=== PATIENT | female | born 1950 | race Caucasian/White ===

== ENCOUNTER 2019-04-18 17:54 | Emergency (ER) | payer OTHER ==
[2019-04-18] MEDS ORDERED: ONDANSETRON 4 MG/2 ML VIAL ONE (19:05)
[2019-04-18] MEDS ORDERED: MORPHINE 4 MG/ML SYR ONE (19:05)
[2019-04-18] MEDS ORDERED: LIDOCAINE 1% MPF 5 ML VIAL ONE ×2 (19:54→19:56)
--- NOTE | 2019-04-18 19:57 | RAD REPORT ---
EXAM DESCRIPTION: RAD - Foot Right 3 View - 04/18/2019 7:30 pm CLINICAL HISTORY: Trip and fall, right foot pain, pain primarily right third toe COMPARISON: None. FINDINGS: No acute fracture confirmed on this study. Postsurgical changes are present with bone scre w in place fusing the first MTP joint. There is upper true of the along the lateral margin of the fir st metatarsal head and first toe proximal phalanx. Full surgical history for the patient is unknown. There is deformity of the second- fifth metatarsal heads in deformity of the base of each in the seco nd- proximal phalanges. This could be a combination of surgical change in degenerative change. There is joint space narrowing at the third MTP joint with marginal spurring. No erosive or destructive wendy nges seen. IP joint degenerative changes are present. The DIP joint of the third toe is not well visualized. Dis location of the third distal phalanx at the DIP joint cannot be excluded. Lateral imaging of this alesha nt is limited. No air or foreign body in the soft tissues. IMPRESSION: No fracture changes confirmed on this study. Dislocation of the third distal phalanx to the DIP joints not be excluded. Degenerative change and/or post surgical change involves the second- fifth MTP joints. Prominent dege nerative changes seen at the third MTP joint. Fusion of the first MTP joint. There is spurring or bony hypertrophy at the lateral margin of the alesha nt but no acute finding.
[2019-04-18] MEDS ORDERED: DIAZEPAM 10 MG/2 ML INJ SYRINGE ONE (20:42)
--- NOTE | 2019-04-18 21:25 | ER ---
Nurse's Notes [facility] Name: Yodit Gross Age: 68 yrs Sex: Female : 1950 Arrival Date: 04/18/2019 Time: 17:57 Bed 26 Private MD: Diagnosis: Dislocation of interphalangeal joint of left lesser toe(s);Laceration with foreign body of left lesser toe(s) without damage to nail Presentation: 04/18 18:25 Presenting complaint: Patient states: "I tripped getting out of my house and hurt my aj1 foot." States that her right 3rd toe is bent backward and there is a laceration to that toe. Drsg to right foot is dry and intact. Transition of care: patient was not received from another setting of care. Onset of symptoms was April 18, 2019 at 17:30. Risk Assessment: Do you want to hurt yourself or someone else? Patient reports no desire to harm self or others. Initial Sepsis Screen: Does the patient meet any 2 criteria? No. Patient's initial sepsis screen is negative. Does the patient have a suspected source of infection? No. Patient's initial sepsis screen is negative. Care prior to arrival: None. 18:25 Method Of Arrival: Wheelchair aj1 18:25 Acuity: MERRITT 4 aj1 Triage Assessment: 18:27 General: Appears in no apparent distress. uncomfortable, Behavior is calm, cooperative, aj1 appropriate for age. Pain: Complains of pain in right foot. Neuro: Level of Consciousness is awake, alert, obeys commands. Cardiovascular: Patient's skin is warm and dry. Respiratory: Airway is patent Respiratory effort is even, unlabored, Respiratory pattern is regular, symmetrical. Historical: - Allergies: 18:27 Codeine; aj1 - Home Meds: 18:27 Lipitor Oral [Active]; humarra [Active]; methatrexate [Active]; aj1 - PMHx: 18:27 Hyperlipidemia; RA; aj1 - Immunization history:: Flu vaccine is up to date. - Social history:: Smoking status: Patient/guardian denies using tobacco. - Ebola Screening: : Patient denies travel to an Ebola-affected area in the 21 days before illness onset. Screenin:11 Abuse screen: Denies threats or abuse. Nutritional screening: No deficits noted. tr5 Tuberculosis screening: No symptoms or risk factors identified. Fall Risk None identified. Assessment: 18:45 Pain: Complains of pain in right foot Pain does not radiate. Pain currently is 6 out of tr5 10 on a pain scale. Quality of pain is described as aching, Pain began gradually. Neuro: Level of Consciousness is awake, alert, confused, Oriented to person, place, time, Site Leasing Agent are equal bilaterally Moves all extremities. Cardiovascular: Heart tones present Capillary refill < 3 seconds Pulses are all present. Edema is absent. Respiratory: Airway is patent Respiratory effort is even, unlabored, Respiratory pattern is regular, symmetrical. GI: No signs and/or symptoms were reported involving the gastrointestinal system. : No signs and/or symptoms were reported regarding the genitourinary system. EENT: No signs and/or symptoms were reported regarding the EENT system. Derm: Skin is intact, Skin is dry. Musculoskeletal: Capillary refill < 3 seconds. 18:45 General: Appears uncomfortable, Behavior is calm, cooperative, appropriate for age. tr5 20:00 Reassessment: Patient appears in no apparent distress at this time. Patient and/or tr5 family updated on plan of care and expected duration. Pain level reassessed. Patient is alert, oriented x 3, equal unlabored respirations, skin warm/dry/pink. 21:23 Reassessment: Patient appears in no apparent distress at this time. No changes from tr5 previously documented assessment. Patient is alert, oriented x 3, equal unlabored respirations, skin warm/dry/pink. Vital Signs: 18:27 BP 140 / 78; Pulse 83; Resp 19; Temp 98.0; Pulse Ox 98% on R/A; Weight 71.21 kg (R); aj1 Height 5 ft. 5 in. (165.10 cm) (R); Pain 8/10; 21:00 BP 134 / 81; Pulse 66; Resp 17; Pulse Ox 100% on R/A; tr5 18:27 Body Mass Index 26.13 (71.21 kg, 165.10 cm) 1 ED Course: 17:57 Patient arrived in ED. as 18:27 Triage completed. aj1 18:27 Arm band placed on Patient placed in an exam room. aj1 18:30 Joseph James, RN is Primary Nurse. tr5 18:35 Marilyn Frazier FNP is [facility]. nh 18:35 Parmjit Weeks MD is Attending Physician. nh 18:57 Inserted saline lock: 22 gauge in right antecubital area, using aseptic technique. ca1 Blood collected. 19:11 Patient has correct armband on for positive identification. Bed in low position. Call tr5 light in reach. 19:29 X-ray completed. Portable x-ray completed in exam room. Patient tolerated procedure mh1 well. 19:31 XRAY Foot RIGHT 3 View In Process Unspecified. EDMS 21:11 X-ray completed. Portable x-ray completed in exam room. Patient tolerated procedure mh1 well. 21:12 XRAY Foot RIGHT 3 View In Process Unspecified. EDMS 21:24 Harley Dempsey DPM is Referral Physician. nh 22:07 Ortho shoe applied to right foot. lt1 Administered Medications: 19:05 Drug: Zofran 4 mg Route: IVP; Site: right antecubital; ca1 19:56 Follow up: Response: No adverse reaction ca1 19:09 Drug: morphine 4 mg {Note: RASS - 0.} Route: IVP; Site: right antecubital; ca1 19:56 Follow up: Response: No adverse reaction; Pain is decreased; RASS: Alert and Calm (0) ca1 20:44 Drug: Valium 5 mg Route: IVP; Site: right antecubital; ca1 21:30 Follow up: Response: Marked relief of symptoms tr5 21:14 Drug: Lidocaine (1 %) 1 mg/kg Volume: 20 ml; Route: Infiltration; tr5 21:14 Drug: Bupivacaine (0.25 %) 1 mg/kg Route: Infiltration; tr5 21:43 Drug: Ancef 1 grams Route: IM; Site: left deltoid; tr5 22:15 Follow up: Response: Medication administered at discharge. tr5 Outcome: 21:25 Discharge ordered by . nh 22:18 Patient left the ED. tr5 Signatures: Dispatcher [employer] EDMS Daria Rogers RN RN aj1 Marilyn Frazier FNP MACHINE DESIGN ENGINEER ny Hue Cabezas 1 Isaura Griffiths Cheryl, RN RN ca1 Landeros, Brooke lt1 Joseph James RN RN tr5 Corrections: (The following items were deleted from the chart) 19:11 19:09 General: Appears uncomfortable, Behavior is calm, cooperative, appropriate for tr5 age, tr5
--- NOTE | 2019-04-18 21:26 | EDPHYS ---
Physician Documentation [facility] Name: Yodit Gross Age: 68 yrs Sex: Female : 1950 Arrival Date: 04/18/2019 Time: 17:57 Bed 26 Private MD: ED Physician Parmjit Weeks HPI: 04/18 21:20 This 68 yrs old Female presents to ER via Wheelchair with complaints of Toe nh Injury. 21:20 Onset: The symptoms/episode began/occurred acutely, just prior to arrival. The patient nh has not experienced similar symptoms in the past. The patient has not recently seen a physician. Patient tripped over dog injuring foot. Hx of RA with deformities in effected foot. Historical: - Allergies: 18:27 Codeine; aj1 - Home Meds: 18:27 Lipitor Oral [Active]; humarra [Active]; methatrexate [Active]; aj1 - PMHx: 18:27 Hyperlipidemia; RA; aj1 - Immunization history:: Flu vaccine is up to date. - Social history:: Smoking status: Patient/guardian denies using tobacco. - Ebola Screening: : Patient denies travel to an Ebola-affected area in the 21 days before illness onset. ROS: 21:20 Constitutional: Negative for fever, chills, and weight loss, Eyes: Negative for injury, nh pain, redness, and discharge, ENT: Negative for injury, pain, and discharge, Neck: Negative for injury, pain, and swelling, Cardiovascular: Negative for chest pain, palpitations, and edema, Respiratory: Negative for shortness of breath, cough, wheezing, and pleuritic chest pain, Abdomen/GI: Negative for abdominal pain, nausea, vomiting, diarrhea, and constipation, Back: Negative for injury and pain, : Negative for injury, bleeding, discharge, and swelling, Skin: Negative for injury, rash, and discoloration, Neuro: Negative for headache, weakness, numbness, tingling, and seizure, Psych: Negative for depression, anxiety, suicide ideation, homicidal ideation, and hallucinations, Allergy/Immunology: Negative for hives, rash, and allergies, Endocrine: Negative for neck swelling, polydipsia, polyuria, polyphagia, and marked weight changes, Hematologic/Lymphatic: Negative for swollen nodes, abnormal bleeding, and unusual bruising. 21:20 MS/extremity: Positive for injury or acute deformity, laceration, of the plantar aspect of right third toe. Exam: 21:20 Constitutional: This is a well developed, well nourished patient who is awake, alert, nh and in no acute distress. Head/Face: Normocephalic, atraumatic. Eyes: Pupils equal round and reactive to light, extra-ocular motions intact. Lids and lashes normal. Conjunctiva and sclera are non-icteric and not injected. Cornea within normal limits. Periorbital areas with no swelling, redness, or edema. ENT: Nares patent. No nasal discharge, no septal abnormalities noted. Tympanic membranes are normal and external auditory canals are clear. Oropharynx with no redness, swelling, or masses, exudates, or evidence of obstruction, uvula midline. Mucous membranes moist. Neck: Trachea midline, no thyromegaly or masses palpated, and no cervical lymphadenopathy. Supple, full range of motion without nuchal rigidity, or vertebral point tenderness. No Meningismus. Chest/axilla: Normal chest wall appearance and motion. Nontender with no deformity. No lesions are appreciated. Cardiovascular: Regular rate and rhythm with a normal S1 and S2. No gallops, murmurs, or rubs. Normal PMI, no JVD. No pulse deficits. Respiratory: Lungs have equal breath sounds bilaterally, clear to auscultation and percussion. No rales, rhonchi or wheezes noted. No increased work of breathing, no retractions or nasal flaring. Abdomen/GI: Soft, non-tender, with normal bowel sounds. No distension or tympany. No guarding or rebound. No evidence of tenderness throughout. Back: No spinal tenderness. No costovertebral tenderness. Full range of motion. Skin: Warm, dry with normal turgor. Normal color with no rashes, no lesions, and no evidence of cellulitis. Neuro: Awake and alert, GCS 15, oriented to person, place, time, and situation. Cranial nerves II-XII grossly intact. Motor strength 5/5 in all extremities. Sensory grossly intact. Cerebellar exam normal. Normal gait. 21:20 Musculoskeletal/extremity: Extremities: noted in the plantar aspect of right third toe: deformity, laceration, pain, ROM: limited active range of motion due to pain, in the plantar aspect of right third toe, Circulation is intact in all extremities. Sensation intact. Vital Signs: 18:27 BP 140 / 78; Pulse 83; Resp 19; Temp 98.0; Pulse Ox 98% on R/A; Weight 71.21 kg (R); aj1 Height 5 ft. 5 in. (165.10 cm) (R); Pain 8/10; 21:00 BP 134 / 81; Pulse 66; Resp 17; Pulse Ox 100% on R/A; tr5 18:27 Body Mass Index 26.13 (71.21 kg, 165.10 cm) aj1 Procedures: 21:20 Reduction: of the plantar aspect of right third toe, using traction, Patient tolerated me well. Post reduction film - reveals normal alignment. Laceration: 21:20 Wound Repair of 2cm ( 0.8in ) subcutaneous laceration to plantar aspect of right third nh toe. Distal neuro/vascular/tendon intact. Anesthesia: Digital block administered with 1 mls of Lido/Marcaine. Wound prep: Moderate cleansing with betadine by me. Skin closed with 4 5-0 Prolene using simple sutures and sterile technique. Patient tolerated well. MDM: 18:35 Patient medically screened. me 21:20 Data reviewed: vital signs, nurses notes, radiologic studies, I have discussed the me patient's presentation/case with the attending Emergency Department Physician; and as a result, I will discharge patient. Counseling: I had a detailed discussion with the patient and/or guardian regarding: the historical points, exam findings, and any diagnostic results supporting the discharge/admit diagnosis, radiology results, the need for outpatient follow up, to return to the emergency department if symptoms worsen or persist or if there are any questions or concerns that arise at home. 04/18 19:08 Order name: XRAY Foot RIGHT 3 View; Complete Time: 20:19 me 04/18 20:55 Order name: XRAY Foot RIGHT 3 View me 04/18 19:08 Order name: IV Saline Lock; Complete Time: : ca1 Administered Medications: 19:05 Drug: Zofran 4 mg Route: IVP; Site: right antecubital; ca1 19:56 Follow up: Response: No adverse reaction ca1 19:09 Drug: morphine 4 mg {Note: RASS - 0.} Route: IVP; Site: right antecubital; ca1 19:56 Follow up: Response: No adverse reaction; Pain is decreased; RASS: Alert and Calm (0) ca1 20:44 Drug: Valium 5 mg Route: IVP; Site: right antecubital; ca1 21:30 Follow up: Response: Marked relief of symptoms tr5 21:14 Drug: Lidocaine (1 %) 1 mg/kg Volume: 20 ml; Route: Infiltration; tr5 21:14 Drug: Bupivacaine (0.25 %) 1 mg/kg Route: Infiltration; tr5 21:43 Drug: Ancef 1 grams Route: IM; Site: left deltoid; tr5 22:15 Follow up: Response: Medication administered at discharge. tr5 Disposition: 04/19 07:40 Co-signature as Attending Physician, Parmjit Weeks MD. rn Disposition: 04/18/19 21:25 Discharged to Home. Impression: Dislocation of interphalangeal joint of left lesser toe(s), Laceration with foreign body of left lesser toe(s) without damage to nail. - Condition is Stable. - Discharge Instructions: Sutured Wound Care, Toe Dislocation. - Prescriptions for Doxycycline Hyclate 100 mg Oral Tablet - take 1 tablet by ORAL route every 12 hours; 20 tablet. Tramadol 50 mg Oral Tablet - take 1 tablet by ORAL route every 8 hours as needed; 20 tablet. Bactrim DS 800- 160 mg Oral Tablet - take 1 tablet by ORAL route every 12 hours for 10 days; 20 tablet. - Medication Reconciliation Form, Thank You Letter, Antibiotic Education, Prescription Opioid Use form. - Follow up: Harley Dempsey DPM; When: 2 - 3 days; Reason: Recheck today's complaints. - Problem is new. - Symptoms are unchanged. Signatures: Dispatcher [employer] EDMS Daria Rogers RN RN aj1 Marilyn Frazier, INSURANCE SALES ASSOCIATE INSURANCE SALES ASSOCIATE Parmjit Crump MD MD rn Acob, Cheryl, RN RN ca1 Joseph James RN RN tr5 Corrections: (The following items were deleted from the chart) 04/18 22:18 21:25 04/18/2019 21:25 Discharged to Home. Impression: Dislocation of interphalangeal tr5 joint of left lesser toe(s); Laceration with foreign body of left lesser toe(s) without damage to nail. Condition is Stable. Forms are Medication Reconciliation Form, Thank You Letter, Antibiotic Education, Prescription Opioid Use. Follow up: Harley Dempsey; When: 2 - 3 days; Reason: Recheck today's complaints. Problem is new. Symptoms are unchanged. nh
[2019-04-18] MEDS ORDERED: CEFAZOLIN/SWI 1gm 1 GM/10 ML SYR ONE (21:38)
[2019-04-19 05:43] VITALS: TEMP 98
[2019-04-19 05:44] VITALS: BP 134/81; O2SAT 100
--- NOTE | 2019-04-19 12:36 | RAD REPORT ---
EXAM DESCRIPTION: RAD - Foot Right 3 View - 04/18/2019 9:15 pm CLINICAL HISTORY: PAIN COMPARISON: Foot Right 3 View dated 04/18/2019 FINDINGS: Postsurgical changes of first MTP joint fusion noted. Metatarsal head deformity is present involving the second through fifth. No definitive fracture or dislocation seen. Subluxation of the p roximal phalanx of second toe with respect to the second metatarsal head is seen, but has a chronic a ppearance.
== END 2019-04-18 22:18 | disposition home or self-care (01) ==
LOC: ER 17:54
PROC: 0JQQ0ZZ Repair Right Foot Subcutaneous Tissue and Fascia, Open Approach (ICD-10-PCS; principal; 2019-04-18)
PROC: 0SSQXZZ Reposition Left Toe Phalangeal Joint, External Approach (ICD-10-PCS; 2019-04-18)
DX: S91.114A Laceration without foreign body of right lesser toe(s) without damage to nail, initial encounter (principal); S93.114A Dislocation of interphalangeal joint of right lesser toe(s), initial encounter; E78.5 Hyperlipidemia, unspecified; W01.0XXA Fall on same level from slipping, tripping and stumbling without subsequent striking against object, initial encounter; Y93.89 Activity, other specified; Y92.9 Unspecified place or not applicable; Z88.6 Allergy status to analgesic agent
CPT/HCPCS: 73630 ×2; 96375; 96372; 96374; 99284; 12001; 28660; J3360; J0690; J2405

== ENCOUNTER 2022-07-08 16:37 | Inpatient (IN) | payer OTHER ==
--- OUTSIDE RECORDS SUMMARY | 2022-07-08 16:41 | XMS REPORT | Continuity of Care Document ---
:1950 [facility] Organization [facility] t Address [address] [place] [address] Care Team Providers Name Role Phone Mateo Barton MD Primary Care Physician [phone] ELISSA BRYANT Attending Clinician Unavailable Jordan Stout MD Attending Clinician AMBER DOBBS Attending Clinician Unavailable Amber Dobbs MD Attending Clinician Pob, [facility] Lab Main Attending Clinician Unavailable Only, Adc Test Attending Clinician Unavailable Doctor Unassigned, [place] Attending Clinician Unavailable DENA KENDALL Attending Clinician Unavailable Elissa Bryant MD Attending Clinician Amber Pinzon MD Attending Clinician AMBER PINZON Attending Clinician Unavailable ELISSA BRYANT Admitting Clinician Unavailable AMBER DOBBS Admitting Clinician Unavailable Amber Dobbs MD Admitting Clinician Elissa Bryant MD Admitting Clinician Payers Payer Name Policy Type Policy Number Effective Date Expiration Date [facility] [id number] 2020 MEDICARE ADV HMO 00:00:00 Problems Condition Condition Condition Status Onset Resolution Last Treating Co mments Source Name Details Category Date Date Treatment Clinician Date Hyperlipid Hyperlipid Disease Active M ethodi emia emia 7-26 st 00:00: Hospita 00 l Palpitatio Palpitatio Disease Active M ethodi ns ns 03-06 st 00:00: Hospita 00 l No known No known Disease Metho di active active st problems problems Hospit a l Allergies, Adverse Reactions, Alerts Allergy Allergy Status Severity Reaction(s) Onset Inactive Treating Comm ents Source Name Type Date Date Clinician Codeine Propensi Active Itching 2019-08 Univer s ty to 0-07 ity of adverse 00:00: [place] reaction 00 Medical s Branch CODEINE DRUG Active ITCHING 2019-08 Univers INGREDI 0-07 ity of 00:00: [place] [address] [place] [address] Branch Codeine Propensi Active Rash Methodi ty to 01-03 st adverse 00:00: Hospita reaction 00 l s to drug NO KNOWN Drug Active Univers ALLERGIE Class ity of S [facility] Family History Family Member Diagnosis Comments Start Date Stop Date Source Natural mother Heart disease [facility] Natural brother Heart attack [facility] Natural brother Heart disease [facility] Natural daughter Diabetes [facility] Natural father Cancer [facility] Grandchild Diabetes [facility] ital Social History Social Habit Start Date Stop Date Quantity Comments Source Exposure to Not sure [facility] SARS-CoV-2 [facility] [place] [facility] (event) [facility] Alcohol intake 2022-03-06 2022-03-06 Lifetime [facility] 00:00:00 00:00:00 non-drinker (finding) Tobacco use and 2020-07-15 2020-07-15 Smokeless tobacco [facility] exposure 00:00:00 00:00:00 non-user Sex Ass[birth year] At [birth year] [facility] 00:00:00 00:00:00 Smoking Status Start Date Stop Date Source Unknown if ever smoked [facility] Never smoked tobacco [facility] ospital Medications Ordered Filled Start Stop Current Ordering Indication Dosage Frequency Signature Comments Components Source Medication Medication Date Date Medication? Clinician (SIG) Name Name methotrexat Yes 7.5mg Take 7.5 M ethodi e (TREXALL) 7-[address] 7.5 MG 13:52: mouth. Hospita tablet 58 l inFLIXimab Yes Infuse Metho di (Remicade) 03-[address] 100 mg 13:27: venous Hospita injection 06 catheter. l predniSONE 0 Yes 5mg QD Take 5 mg [facility] (DELTASONE) 7-[address] 5 mg tablet 00:00: daily. Hosp maycol 00 l tetracaine 2020-08 Yes PRN, Univers (PONTOCAINE 08-22 Starting ity of ) 0.5 % 20:30: on [place] ophthalmic 00 06/22/21 Medic al drops at 1430, Branch Until Discontinu ed, Routine, Intra-op DUOVISC 2020-08 Yes PRN, Univers (DUOVISC 08-22 Starting ity of VISCO 16:08: on [place] ELASTIC) 3 00 06/22/21 Medic al %-4 %(0.5 at 1008, Branch mL) 1 % Until (0.55 mL) Discontinu intraocular ed, injection Routine, Intra-op DUOVISC 2020-08- No PRN, Univers (DUOVISC 08-22 Starting ity of VISCO 16:08: 18:[address] [facility] ELASTIC) 3 00 :46 06/22/21 Medic al %-4 %(0.5 at 1008, Branch mL) 1 % Until [place] (0.55 mL) 06/22/21 intraocular at 1256, injection Routine, Intra-op gentamicin 2020-08 Yes PRN, Univers injection 08-22 Starting ity of 16:07: on [place] 00 06/22/21 Medical at [facility], [place] Until Discontinu ed, AUGIE, Intra-op dexamethaso 2020-08 Yes PRN, Univkerri s ne 08-22 Starting ity of (DECADRON 16:07: on [facility] PHOSPHATE) 00 06/22/21 Medic al injection at [facility], Branch Until Discontinu ed, Routine, Intra-op gentamicin 2020-08- No PRN, Univer s injection 08-22 Starting ity o f 16:07: 18:56 on [place] 00 :46 06/22/21 Medical at [facility], Branch Until [place] 06/22/21 at 1256, AUGIE, Intra-op dexamethaso 2020-08- No PRN, Unive rs ne 08-22 Starting ity of (DECADRON 16:07: 18:56 on [facility] [place] PHOSPHATE) 00 :46 06/22/21 Medic al injection at 1007, Branch Until [place]y 06/22/21 at 1256, Routine, Intra-op ceFAZolin 2020-08 Yes PRN, Univers (ANCEF) 08-22 Starting ity of injection 16:06: on [place] 00 06/22/21 Medical at 1006, Branch Until Discontinu ed, AUGIE, Intra-op ceFAZolin 2020-08- No PRN, Univers (ANCEF) 08-22 Starting ity of injection 16:06: 18:56 on [place] 00 :46 06/22/21 Medical at 1006, Branch Until [place] 06/22/21 at 1256, AUGIE, Intra-op NaCl 0.9% 2020-08 Yes PRN, Univers (NS) 08-22 Starting ity of injection 16:04: on [facility] 00 06/22/21 Medical at 1004, Branch Until Discontinu ed, Routine, Intra-op NaCl 0.9% 2020-08- No PRN, Univers (NS) 08-22 Starting ity of injection 16:04: 18:[address] [facility] 00 :46 06/22/21 Medical at 1004, Branch Until [place]etsy 06/22/21 at 1256, Routine, Intra-op water for 2020-08 Yes PRN, Univers irrigation 08-22 Starting ity o f irrigation 16:00: on [facility] [place] solution 00 06/22/21 Medical at 1000, Branch Until Discontinu ed, Routine, Intra-op water for 2020-08- No PRN, Univers irrigation 08-22 Starting ity of irrigation 16:00: 18:56 on [facility] [place] solution 00 :46 06/22/21 Medical at 1000, Branch Until [place]etsy 06/22/21 at 1256, Routine, Intra-op neomycin-po 2020-08 Yes PRN, Univer s lymyxin-dex 08-22 Starting ity of amethasone 15:58: on [facility] (MAXITROL) 00 06/22/21 Medic al 3.5 at 0958, Branch mg/g-10,000 Until unit/g-0.1 Discontinu % ed, ophthalmic Routine, ointment Intra-op neomycin-po 2020-08- No PRN, Unive rs lymyxin-dex 08-22 Starting ity of amethasone 15:58: 18:56 on [place] (MAXITROL) 00 :46 06/22/21 Medic al 3.5 at 0958, Branch mg/g-10,000 Until [place] unit/g-0.1 06/22/21 % at 1256, ophthalmic Routine, ointment Intra-op eye block 2020-08 Yes PRN, Univers syringe 08-22 Starting ity o f mL 15:57: on [place] 00 06/22/21 Medical at 0957, Branch Until Discontinu ed, Intra-op eye block 2020-08- No PRN, Univers syringe 11 08-22 Starting ity of mL 15:57: 18:56 on [place] 00 :46 06/22/21 Medical at 0957, Branch Until [place] 06/22/21 at 1256, Intra-op EPINEPHrine 2020-08 Yes PRN, Univer s (PF) 08-22 Starting ity of 1:1,000 (1 15:45: on [place] mg/mL) 00 06/22/21 Medical (ADRENALIN at 0945, Branc h (PF)) Until injection Discontinu ed, Routine, Intra-op balanced 2020-08 Yes PRN, Univers salt soln 08-22 Starting ity of no.2 irrig. 15:45: on [place] (BSS) 00 06/22/21 Medical ophthalmic at 0945, Branc h solution Until Discontinu ed, Routine, Intra-op EPINEPHrine 2020-08- No PRN, Unive rs (PF) 08-22 Starting ity of 1:1,000 (1 15:45: 18:56 on [place] mg/mL) 00 :46 06/22/21 Medical (ADRENALIN at 0945, Branc h (PF)) Until [place] injection 06/22/21 at 1256, Routine, Intra-op balanced 2020-08- No PRN, Univers salt soln 08-22 Starting ity o f no.2 irrig. 15:45: 18:56 on [place] (BSS) 00 :46 06/22/21 Medical ophthalmic at 0945, Branc h solution Until Betsy 06/22/21 at 1256, Routine, Intra-op mydriatic 2020-08- No .5mL 0.5 mL, Univ ers #5 08-22 Right Eye, ity of ophthalmic 14:45: 14:51 ONCE, 1 [place] solution 00 :00 dose, On Medical 0.5 mL [place] Branch syringe 06/22/21 at 0845, Routine, DSU Pre-op lactated 2020-08- No 1000mL at 42 Unive rs ringers IV 08-22 11-11 mL/hr, ity of infusion 14:45: 14:47 1,000 mL, Rudi as 1,000 mL 00 :00 IV Medical Infusion, Branch ONCE, 1 dose, On [place] 06/22/21 at 0845, Routine, DSU Pre-op mydriatic 2020-08- No .5mL 0.5 mL, Univ ers #5 08-22 Right Eye, ity of ophthalmic 14:45: 14:51 ONCE, 1 [place] solution 00 :00 dose, On Medical 0.5 mL [place] Branch syringe 06/22/21 at 0845, Routine, DSU Pre-op lactated 2020-08 No 1000mL at 42 Unive rs ringers IV 08-22 11-11 mL/hr, ity of infusion 14:45: 14:47 1,000 mL, Rudi as 1,000 mL 00 :00 IV Medical Infusion, Branch ONCE, 1 dose, On [place] 06/22/21 at 0845, Routine, DSU Pre-op rosuvastati 2020-08 Yes Take by Uni vers n 40 mg 1-11 mouth. ity of CpSP 10:51: [place] 41 Medical Branch methotrexat 2020-08 Yes 7.5mg Take 7.5 U nivers e 7.5 mg 1-11 mg by ity of tablet 10:51: mouth [place] 41 weekly. Medical Branch adalimumab 2020-08 Yes inject Unive rs (HUMIRA PEN 1-11 under the ity of [place]) 10:51: skin every [place] 41 2 (two) Medical weeks. Branch DULoxetine 2020-08 Yes 60mg Take 60 mg U nivers 60 mg 1-11 by mouth ity of capsule 10:51: daily. [place] [address] Medical Branch rosuvastati 2020-08 Yes 10mg Take 10 mg Univers n 10 mg 1-11 by mouth ity of tablet 10:51: at [place] [address] bedtime. Medical Branch rosuvastati 2020-08 Yes Take by Uni vers n 40 mg 1-11 mouth. ity of CpSP 10:51: [place] [address] Medical Branch methotrexat 2020-08 Yes 7.5mg Take 7.5 U nivers e 7.5 mg 1-11 mg by ity of tablet 10:51: mouth [place] 41 weekly. Medical Branch adalimumab 2020-08 Yes inject Unive rs (HUMIRA PEN 1-11 under the ity of [place]) 10:51: skin every [place] [address] 2 (two) Medical weeks. Branch DULoxetine 2020-08 Yes 60mg Take 60 mg U nivers 60 mg 1-11 by mouth ity of capsule 10:51: daily. [place] [address] Medical Branch rosuvastati 2020-08 Yes 10mg Take 10 mg Univers n 10 mg 1-11 by mouth ity of tablet 10:51: at [place] [address] bedtime. Medical Branch methotrexat 2020-08 Yes 7.5mg Take 7.5 U nivers e 7.5 mg 1-09 mg by ity of tablet 13:40: mouth [place] [address] weekly. Medical Branch tetracaine 2020-08 Yes PRN, Univers (PONTOCAINE 0-28 Starting ity of ) 0.5 % 13:54: on [place] ophthalmic 00 06/08/21 Medic al drops at 0854, [place] Until Discontinu ed, Routine, Intra-op tetracaine 2020-08 No PRN, Univer s (PONTOCAINE 0-28 10-28 Starting ity of ) 0.5 % 13:54: 18:26 on [place] ophthalmic 00 :51 06/08/21 Medic al drops at 0854, [place] Until [place]etsy 06/08/21 at 1326, Routine, Intra-op water for 2020-08 Yes PRN, Univers irrigation 0-28 Starting ity o f irrigation 13:53: on [place] solution 00 06/08/21 Medical at 0853, [place] Until Discontinu ed, Routine, Intra-op NaCl 0.9% 2020-08 Yes PRN, Univers (NS) 0-28 Starting ity of injection 13:53: on [facility] 00 06/08/21 Medical at 08, Branch Until Discontinu ed, Routine, Intra-op neomycin-po 2020-08 Yes PRN, Univer s lymyxin-dex 0-28 Starting ity of amethasone 13:53: on [facility] (MAXITROL) 00 06/08/21 Medic al 3.5 at [facility], Branch mg/g-10,000 Until unit/g-0.1 Discontinu % ed, ophthalmic Routine, ointment Intra-op gentamicin 2020-08 Yes PRN, Univers injection 0-28 Starting ity of 13:53: on [facility] 00 06/08/21 Medical at [facility], Branch Until Discontinu ed, AUGIE, Intra-op water for 2020-08- No PRN, Univers irrigation 0-06-08 Starting ity of irrigation 13:53: [facility] 06/08/21 Medical at 08, Branch Until [place]y 06/08/21 at 1326, Routine, Intra-op NaCl 0.9% 2020-08- No PRN, Univers (NS) 0-06-08 Starting ity of injection 13:53: 18:[address] [facility] 00 :51 06/08/21 Medical at 08, Branch Until [place] 06/08/21 at 1326, Routine, Intra-op neomycin-po 2020-08- No PRN, Unive rs lymyxin-dex 0-06-08 Starting ity of amethasone 13:53: 18:[facility] ([facility] 00 :51 06/08/21 Medic al 3.5 at [facility], Branch mg/g-10,000 Until [place] unit/g-0.1 06/08/21 % at 1326, ophthalmic Routine, ointment Intra-op gentamicin 2020-08- No PRN, Univer s injection 0-06-08 Starting ity o f 13:53: 18:[address] [facility] 00 :51 06/08/21 Medical at 08, Branch Until [place] 06/08/21 at 1326, AUGIE, Intra-op eye block 2020-08 Yes PRN, Univers syringe 11 0- Starting ity o f mL 13:52: on [place] 00 06/08/21 Medical at 0852, Branch Until Discontinu ed, Intra-op EPINEPHrine 2020-08 Yes PRN, Univer s (PF) 0- Starting ity of 1:1,000 (1 13:52: on [place] mg/mL) 00 06/08/21 Medical (ADRENALIN at 0852, [facility] h (PF)) Until injection Discontinu ed, Routine, Intra-op DUOVISC 2020-08 Yes PRN, Univers (DUOVISC 0- Starting ity of VISCO 13:52: on [place] ELASTIC) 3 00 06/08/21 Medic al %-4 %(0.5 at 0852, Branch mL) 1 % Until (0.55 mL) Discontinu intraocular ed, injection Routine, Intra-op eye block 2020-08- No PRN, Univers syringe 11 0-06-08 Starting ity of mL 13:52: 18:26 on [place] 00 :51 06/08/21 Medical at 0852, Branch Until [place] 06/08/21 at 1326, Intra-op EPINEPHrine 2020-08- No PRN, Unive rs (PF) 0-06-08 Starting ity of 1:1,000 (1 13:52: 18:26 on [place] mg/mL) 00 :51 06/08/21 Medical (ADRENALIN at 0852, [facility] h (PF)) Until Betsy injection 06/08/21 at 1326, Routine, Intra-op DUOVISC 2020-08- No PRN, Univers (DUOVISC 0-06-08 Starting ity of VISCO 13:52: 18:26 on [place] ELASTIC) 3 00 :51 06/08/21 Medic al %-4 %(0.5 at 0852, Branch mL) 1 % Until [place] (0.55 mL) 06/08/21 intraocular at 1326, injection Routine, Intra-op dexamethaso 2020-08 Yes PRN, Univer s ne 0- Starting ity of (DECADRON 13:51: on [place] PHOSPHATE) 00 06/08/21 Medic al injection at 0851, Branch Until Discontinu ed, Routine, Intra-op ceFAZolin 2020-08 Yes PRN, Univers (ANCEF) 0- Starting ity of injection 13:51: on [place] 00 06/08/21 Medical at 0851, Branch Until Discontinu ed, AUGIE, Intra-op dexamethaso 2020-08- No PRN, Unive rs ne 0-06-08 Starting ity of (DECADRON 13:51: 18:26 on [place] PHOSPHATE) 00 :51 06/08/21 Medic al injection at 0851, Branch Until [place] 06/08/21 at 1326, Routine, Intra-op ceFAZolin 2020-08- No PRN, Univers (ANCEF) 006-08 Starting ity of injection 13:51: 18:26 on [place] 00 :51 06/08/21 Medical at 0851, Branch Until [place] 06/08/21 at 1326, AUGIE, Intra-op balanced 2020-08 Yes PRN, Univers salt soln 0- Starting ity of no.2 irrig. 13:50: on [place] (BSS) 00 06/08/21 Medical ophthalmic at 0850, Branc h solution Until Discontinu ed, Routine, Intra-op balanced 2020-08- No PRN, Univers salt soln 06-08 Starting ity o f no.2 irrig. 13:50: 18:26 on [place] [facility] (BSS) 00 :51 06/08/21 Medical ophthalmic at 0850, Branc h solution Until [place]y 06/08/21 at 1326, Routine, Intra-op mydriatic 2020-08- No .5mL 0.5 mL, Univ ers #5 [id number] Left Eye, ity of ophthalmic 12:15: 12:24 ONCE, 1 [place] solution 00 :00 dose, On Medical 0.5 mL [place] Branch syringe 06/08/21 at 0715, Routine, DSU Pre-op lactated 2020-08- No 1000mL at 42 Unive rs ringers IV 0-28 10-28 mL/hr, ity of infusion 12:15: 12:35 1,000 mL, Rudi as 1,000 mL 00 :00 IV Medical Infusion, Branch ONCE, 1 dose, On [place] 06/08/21 at 0715, Routine, DSU Pre-op mydriatic 2020-08- No .5mL 0.5 mL, Univ ers #5 0-28 10-28 Left Eye, ity of ophthalmic 12:15: 12:24 ONCE, 1 [place] solution 00 :00 dose, On Medical 0.5 mL [place] Branch syringe 06/08/21 at 0715, Routine, DSU Pre-op lactated 2020-08- No 1000mL at 42 Unive rs ringers IV 0-28 10-28 mL/hr, ity of infusion 12:15: 12:35 1,000 mL, Rudi as 1,000 mL 00 :00 IV Medical Infusion, Branch ONCE, 1 dose, On [place] 06/08/21 at 0715, Routine, DSU Pre-op rosuvastati 2020-08 Yes Take by Uni vers n 40 mg 0-28 mouth. ity of CpSP 11:21: [address] methotrexat 2020-08 Yes 7.5mg Take 7.5 U nivers e 7.5 mg 0-28 mg by ity of tablet 11:21: mouth [place] [address] weekly. Medical Branch adalimumab 2020-08 Yes inject Unive rs (HUMIRA PEN 0-28 under the ity of [place]) 11:21: skin every [place] [address] 2 (two) Medical weeks. Branch DULoxetine 2020-08 Yes 60mg Take 60 mg U nivers 60 mg 0-28 by mouth ity of capsule 11:21: daily. [place] [address] Medical [place] rosuvastati 2020-08 Yes 10mg Take 10 mg Univers n 10 mg 0-28 by mouth ity of tablet 11:21: at [place] [address] bedtime. Medical Branch rosuvastati 2020-08 Yes Take by Uni vers n 40 mg 0-28 mouth. ity of CpSP 11:21: [address] adalimumab 2020-08 Yes inject Unive rs (HUMIRA PEN 0-28 under the ity of [place]) 11:21: skin every [place] [address] 2 (two) Medical weeks. Branch DULoxetine 2020-08 Yes 60mg Take 60 mg U nivers 60 mg 0-28 by mouth ity of capsule 11:21: daily. [place] [address] Medical Branch rosuvastati 2020-08 Yes 10mg Take 10 mg Univers n 10 mg 0-28 by mouth ity of tablet 11:21: at [place] [address] bedtime. Medical Branch rosuvastati 2020-08 Yes Take by Uni vers n 40 mg 0-28 mouth. ity of CpSP 11:21: [place] [address] Medical Branch methotrexat 2020-08 Yes 7.5mg Take 7.5 U nivers e 7.5 mg 0-28 mg by ity of tablet 11:21: mouth [place] [address] weekly. Medical Branch adalimumab 2020-08 Yes inject Unive rs (HUMIRA PEN 0-28 under the ity of [place]) 11:21: skin every [place] [address] 2 (two) Medical weeks. Branch DULoxetine 2020-08 Yes 60mg Take 60 mg U nivers 60 mg 0-28 by mouth ity of capsule 11:21: daily. [place] [address] Medical Branch rosuvastati 2020-08 Yes 10mg Take 10 mg Univers n 10 mg 0-28 by mouth ity of tablet 11:21: at [place] [address] bedtime. Medical Branch rosuvastati 2020-08 Yes Take by Uni vers n 40 mg 0-25 mouth. ity of CpSP 12:46: [place] [address] Medical Branch adalimumab 2020-08 Yes inject Unive rs (HUMIRA PEN 0-25 under the ity of [place]) 12:46: skin every [place] [address] 2 (two) Medical weeks. Branch DULoxetine 2020-08 Yes 60mg Take 60 mg U nivers 60 mg 0-25 by mouth ity of capsule 12:46: daily. [place] [address] Medical Branch rosuvastati 2020-08 Yes 10mg Take 10 mg Univers n 10 mg 0-25 by mouth ity of tablet 12:46: at [place] [address] bedtime. Medical Branch methotrexat 2019-08 Yes 7.5mg Take 7.5 M ethodi e (TREXALL) 2-[address] 7.5 MG 10:32: mouth. Hospita tablet 21 l methylPREDN 2019-08 Yes Method i ISolone 2-03 st (MEDROL 00:00: Hospita DOSEPAK) 4 00 l mg tablet methylPREDN 2019-08 Yes Method i ISolone 2-03 st (MEDROL 00:00: Hospita DOSEPAK) 4 00 l mg tablet rosuvastati 2019-08 Yes 10mg QD Take 10 mg Methodi n (CRESTOR) 1-[address] 10 mg 00:00: every Hospita tablet 00 evening. l DULoxetine 2019-08 Yes 60mg Q.5D Take 60 mg M ethodi (CYMBALTA) 1-[address] 60 MG 00:00: (two) Hospita capsule 00 times a l day. rosuvastati 2019-08 Yes 10mg QD Take 10 mg Methodi n (CRESTOR) 1-[address] 10 mg 00:00: every Hospita tablet 00 evening. l DULoxetine 2019-08 Yes 60mg Q.5D Take 60 mg M ethodi (CYMBALTA) 1-[address] 60 MG 00:00: (two) Hospita capsule 00 times a l day. cyclobenzap 2019-08 Yes 10mg QD Take 10 mg Methodi rine 0-[address] (FLEXERIL) 00:00: nightly. Hos danita 10 mg 00 l tablet cyclobenzap 2019-08- No 10mg QD Take 10 mg Methodi rine 0-08 07-[address] (FLEXERIL) 00:00: 00:00 nightly. Ho spita 10 mg 00 :00 l tablet rosuvastati 2019-08 Yes Take by Uni vers n 40 mg 0-07 mouth. ity of CpSP 16:07: [place] [address] Medical Branch methotrexat 2019-08 Yes 7.5mg Take 7.5 U nivers e 7.5 mg 0-07 mg by ity of tablet 16:07: mouth [place] [address] weekly. Medical Branch adalimumab 2019-08 Yes inject Unive rs (HUMIRA PEN 0-07 under the ity of [place]) 16:07: skin every [place] [address] 2 (two) Medical weeks. Branch water for 2019-08 Yes PRN, Univers irrigation 0-07 Starting ity o f irrigation 14:53: Wed [place] solution 00 05/18/20 at Medic al 0953, Branch Until Discontinu ed, Routine, Intra-op simethicone 2019-08 Yes PRN, Univer s (GAS RELIEF 0-07 Starting ity of (SIMETHICON 14:53: Wed [place] E)) 40 00 05/18/20 at Medical mg/0.6 mL 0953, [place] drops Until Discontinu ed, Routine, Intra-op rosuvastati 2019-08 Yes Take by Uni vers n 40 mg 0-07 mouth. ity of CpSP 11:07: [place] [address] Medical Branch methotrexat 2019-08 Yes 7.5mg Take 7.5 U nivers e 7.5 mg 0-07 mg by ity of tablet 11:07: mouth [place] 48 weekly. Medical Branch adalimumab 2019-08 Yes inject Unive rs (HUMIRA PEN 0-07 under the ity of [place]) 11:07: skin every [place] 48 2 (two) Medical weeks. Branch rosuvastati 2019-08 Yes Take by Uni vers n 40 mg 0-07 mouth. ity of CpSP 11:07: [place] 48 Medical Branch methotrexat 2019-08 Yes 7.5mg Take 7.5 U nivers e 7.5 mg 0-07 mg by ity of tablet 11:07: mouth [place] 48 weekly. Medical Branch adalimumab 2019-08 Yes inject Unive rs (HUMIRA PEN 0-07 under the ity of [place]) 11:07: skin every [place] 48 2 (two) Medical weeks. Branch methotrexat 2019-08 Yes 7.5mg Take 7.5 U nivers e 7.5 mg 0-07 mg by ity of tablet 11:07: mouth [place] [address] weekly. Medical Branch Clenpiq 10 Yes TAKE Meth tigist mg-3.5 gram 05-[address] -12 00:00: BY Hospita gram/160 mL 00 PHYSICIAN l solution Clenpiq 10 2021- No TAKE Met hodi mg-3.5 gram 05-[address] -12 00:00: 00:00 BY Hospita gram/160 mL 00 :00 PHYSICIAN l solution Fluad Quad Yes PHARMACY Met hodi ,04-[address] up,,PF, 60 00:00: ED Hospita mcg (15 mcg 00 l x 4)/0.5 mL syringe Fluad Quad 2021- No PHARMACY Me thodi ,65y 04-22 ADMIN[address] s t up,,PF, 60 00:00: 00:00 ED Hospit a mcg (15 mcg 00 :00 l x 4)/0.5 mL syringe adalimumab 2018-08 Yes INJECT 40 Me thodi (Humira) 40 1-14 MG (0.8 st mg/0.8 mL 00:00: ML) UNDER Hos danita injection 00 THE SKIN l EVERY 14 DAYS adalimumab 2018-08- No INJECT 40 M ethodi (Humira) 40 1-14 07-26 MG (0.8 st mg/0.8 mL 00:00: 00:00 ML) UNDER Ho spita injection 00 :00 THE SKIN l EVERY 14 DAYS tiZANidine Yes TAKE ONE Met hodi (ZANAFLEX) 9-[address] 4 MG tablet 00:00: MOUTH Hospi ta 00 EVERY 8 l HOURS NEEDED FOR MUSCLE SPASMS tiZANidine Yes TAKE ONE Met hodi (ZANAFLEX) 9-[address] 4 MG tablet 00:00: MOUTH Hospi ta 00 EVERY 8 l HOURS NEEDED FOR MUSCLE SPASMS methotrexat Yes TAKE SEVEN Methodi e 2.5 MG 9-[address] tablet 00:00: MOUTH ONCE Hospi ta 00 WEEKLY l folic acid 2015-08 Yes 5mg Take 5 mg Me thodi (FOLVITE) 1 2-[address] MG tablet 00:00: Hospita 00 l folic acid 2015-08 Yes 5mg Take 5 mg Me thodi (FOLVITE) 1 2-[address] MG tablet 00:00: Hospita 00 l ketoprofen 2010-08 Yes 75mg [id number] Take 75 mg Methodi (ORUDIS) 75 1-14 [id number] [address] mouth [address] MG capsule 00:00: 3D (three) Hosp maycol 00 times a l day as needed. ketoprofen 2010-08- No 75mg [id number] Take 75 mg Methodi (ORUDIS) 75 1-14 07-26 [id number] by mouth [address] MG capsule 00:00: 00:00 3D (three) Hos danita 00 :00 times a l day as needed. Vital Signs Vital Name Observation Time Observation Value Comments Source Heart rate 2021-06-22 16:30:00 73 /min [facility] Respiratory rate 2021-06-22 16:30:00 18 /min [facility] Oxygen saturation in 2021-06-22 16:30:00 100 /min [facility] blood by [facility] Pulse oximetry Branch Systolic blood 2021-06-22 16:29:00 127 mm[Hg] Univer sity of pressure [place] [facility] Diastolic blood 2021-06-22 16:29:00 65 mm[Hg] Unive rsity of pressure [place] [facility] Body temperature 2021-06-22 16:18:00 36.67 [place] Univ ersity [facility] [place] [facility] Body height 2021-06-19 13:53:00 165.1 cm [facility] [place] [facility] Body weight 2021-06-19 13:53:00 63.5 kg [facility] BMI 2021-06-19 13:53:00 23.30 kg/m2 [facility] Systolic blood 2021-06-22 16:20:00 137 mm[Hg] [facility] Diastolic blood 2021-06-22 16:20:00 68 mm[Hg] [facility] Heart rate 2021-06-22 16:20:00 74 /min [facility] Respiratory rate 2021-06-22 16:20:00 27 /min [facility] Oxygen saturation in 2021-06-22 16:20:00 99 /min [facility] Arterial blood by [facility] Pulse oximetry Branch Body temperature 2021-06-22 16:18:00 36.67 Monie [facility] Body height 2021-06-19 13:53:00 165.1 cm [facility] Body weight 2021-06-19 13:53:00 63.5 kg [facility] BMI 2021-06-19 13:53:00 23.30 kg/m2 [facility] Systolic blood 2021-06-08 14:30:00 152 mm[Hg] [facility] Diastolic blood 2021-06-08 14:30:00 72 mm[Hg] [facility] Heart rate 2021-06-08 14:30:00 67 /min [facility] Respiratory rate 2021-06-08 14:30:00 14 /min [facility] Oxygen saturation in 2021-06-08 14:30:00 99 /min [facility] Arterial blood by [facility] nicholas Pulse oximetry Branch Body temperature 2021-06-08 14:05:00 36.22 Monie [facility] Body height 2021-05-26 17:47:00 165.1 cm [facility] Body weight 2021-05-26 17:47:00 63.5 kg [facility] BMI 2021-05-26 17:47:00 23.30 kg/m2 [facility] Systolic blood 2021-06-08 12:26:00 142 mm[Hg] [facility] Diastolic blood 2021-06-08 12:26:00 74 mm[Hg] [facility] Heart rate 2021-06-08 12:26:00 72 /min [facility] [place] Body temperature 2021-06-08 12:26:00 36.22 Monie [facility] Respiratory rate 2021-06-08 12:26:00 18 /min [facility] Oxygen saturation in 2021-06-08 12:26:00 100 /min [facility] Arterial blood by [place] [employer] nicholas Pulse oximetry Branch Body height 2021-05-26 17:47:00 165.1 cm [facility] Body weight 2021-05-26 17:47:00 63.5 kg [facility] BMI 2021-05-26 17:47:00 23.30 kg/m2 [facility] Systolic blood 2020-05-18 15:50:00 143 mm[Hg] [facility] Diastolic blood 2020-05-18 15:50:00 87 mm[Hg] [facility] Heart rate 2020-05-18 15:50:00 66 /min [facility] Respiratory rate 2020-05-18 15:50:00 15 /min [facility] Oxygen saturation in 2020-05-18 15:50:00 100 /min [facility] Arterial blood by [place] [employer] nicholas Pulse oximetry Branch Body temperature 2020-05-18 15:45:00 36.61 Monie [facility] Body height 2020-05-18 15:15:00 165.1 cm [facility] Body weight 2020-05-18 15:15:00 63.504 [facility] BMI 2020-05-18 15:15:00 23.30 kg/m2 [facility] Systolic blood 2020-05-18 15:50:00 143 mm[Hg] Univer sity of pressure [facility] Diastolic blood 2020-05-18 15:50:00 87 mm[Hg] [facility] pressure [facility] Heart rate 2020-05-18 15:50:00 66 /min [facility] Respiratory rate 2020-05-18 15:50:00 15 /min [facility] O[facility] saturation in 2020-05-18 15:50:00 100 /min [facility] Arterial blood by [facility] Pulse oximetry [place] Body temperature 2020-05-18 15:45:00 36.61 Monie [facility] Body height 2020-05-18 15:15:00 165.1 cm [facility] Body weight 2020-05-18 15:15:00 63.504 kg [facility] BMI 2020-05-18 15:15:00 23.30 kg/m2 [facility] Systolic blood 2022-03-06 18:22:00 127 mm[Hg] [facility] Diastolic blood 2022-03-06 18:22:00 60 mm[Hg] [facility] pressure Heart rate 2022-03-06 18:22:00 88 /[facility] height 2022-03-06 18:22:00 165.1 cm [facility] Body weight 2022-03-06 18:22:00 69.4 kg [facility] BMI 2022-03-06 18:22:00 25.46 kg/m2 [facility] Procedures Procedure Date / Time Performing Source Performed Clinician ECG 12-LEAD 2022-03-06 [facility] 18:30:24 PHACOEMULSIFICATION OF 2021-06-22 Amber Dobbs [facility] CATARACT WITH INTRAOCULAR 15:46:00 Ben morales [facility] LENS IMPLANT PATIENT QUESTIONNAIRE 2021-06-22 Doctor Unassigned, [facility] 06:01:00 [facility] DAY SURGERY - ADC 2021-06-22 Doctor Unassigned, [facility] 06:01:00 [facility] CONSENT/REFUSAL FOR DIAGNOSIS 2021-06-20 Doctor Unassigned, [facility] AND TREATMENT 20:22:50 [facility] CONSENT/REFUSAL FOR DIAGNOSIS 2021-06-20 Doctor Unassigned, [facility] AND TREATMENT 20:22:50 [facility] ASSIGNMENT OF BENEFITS 2021-06-20 Doctor Unassigned, [facility] 20:22:35 [facility] ASSIGNMENT OF BENEFITS 2021-06-20 Doctor Unassigned, [facility] 20:22:35 [facility] PHACOEMULSIFICATION OF 2021-06-[facility]:35[facility]00 [facility] CBC WITH DIFF 2021-06-02 Rinku [facility] xas 15:38:00 [facility] ASSIGNMENT OF BENEFITS 2021-06-02 Doctor Unassigned [facility] 15:19:33 [facility] COLONOSCOPY (ENDO) 2020-05-18 Mateo Barton [facility] 14:37:42 [facility] NOTICE OF PRIVACY PRACTICES 2020-05-17 Doctor Unassigned, [facility] 14:35:57 [facility] ASSIGNMENT OF BENEFITS 2020-05-17 Doctor Unassigned, [facility] 14:35:30 [facility] NOTICE OF PRIVACY PRACTICES 2020-05-17 Doctor Unassigned, [facility] 14:35:10 [facility] CONSENT/REFUSAL FOR DIAGNOSIS 2020-05-17 Doctor Unassigned [facility] AND TREATMENT 14:34:44 [facility] ASSIGNMENT OF BENEFITS 2020-05-17 Doctor Unassigned, [facility] 14:34:24 [facility] DSU PRE-OP 2020-05-11 Doctor Levi [facility] 05:01:00 [facility] Plan of Care Planned Activity Planned Date Details Comments Source Future Scheduled 2022-06-14 HEPATITIS B VACCINES Met [facility] Test 21:54:06 (1 of 3 - 3-dose series) [code = HEPATITIS B VACCINES (1 of 3 - 3-dose series)] Future Scheduled 2022-06-14 COVID-19 VACCINE (#1) [facility] Test 21:54:06 [code = COVID-19 VACCINE (#1)] Future Scheduled 2022-06-14 Hepatitis C screening [facility] Test 21:54:06 (procedure) [code = 072005084] Future Scheduled 2022-06-14 BREAST CANCER [facility] Test 21:54:06 SCREENING [code = BREAST CANCER SCREENING] Future Scheduled 2022-06-14 COLONOSCOPY SCREENING [facility] Test 21:54:06 [code = COLONOSCOPY SCREENING] Future Scheduled 2022-06-14 SHINGLES VACCINES ([address] [facility] Test 21:54:06 of 2) [code = SHINGLES VACCINES (1 of 2)] Future Scheduled 2022-06-14 65+ [facility] 21:54:06 VACCINE (1 - PCV) [code = 65+ PNEUMOCOCCAL VACCINE (1 - PCV)] Future Scheduled 2022-06-14 INFLUENZA VACCINE Method [facility] Test 21:54:06 [code = INFLUENZA VACCINE] Future Scheduled 2021-08-02 COVID-19 VACCINE (1) [facility] Test 13:11:25 [code = COVID-19 VACCINE (1)] Future Scheduled 2021-08-02 Hepatitis C screening [facility] Test 13:11:25 (procedure) [code = 554350717] Future Scheduled 2021-08-02 BREAST CANCER [facility] Test 13:11:25 SCREENING [code = BREAST CANCER SCREENING] Future Scheduled 2021-08-02 COLONOSCOPY SCREENING [facility] Test 13:11:25 [code = COLONOSCOPY SCREENING] Future Scheduled 2021-08-02 SHINGLES VACCINES (#1) [facility] Test 13:11:25 [code = SHINGLES VACCINES (#1)] Future Scheduled 2021-08-02 65+ [facility]OCOCCAL [facility] Test 13:11:25 VACCINE (1 of 1 - PPSV23) [code = 65+ PNEUMOCOCCAL VACCINE (1 of 1 - PPSV23)] Future Scheduled 2021-08-02 INFLUENZA VACCINE [facility] Test 13:11:25 [code = INFLUENZA VACCINE] Encounters Start End Encounter Admission Attending Care Care Encounter Source Date/Time Date/Time Type Type Clinicians Facility Department ID 2021-06-09 Outpatient R [facility] [id number] Univers 21:17:31 [facility]-06 2022-03-06 Office Yoseph, 1.2.840.1 [id number] Methodi 13:45:00 14:46:57 Visit Jordan Teresa 91978.1.[address] 3.430.2.7 Hospit a .3.340997 l .8 2022-03-06 2022-03-06 Travel 1.2.840.1 [id number] [id number] Methodi 00:00:00 00:00:[address] 3.430.2.7 0.2.7.3.698 Ho spita .3.726061 084.8 l .8 2022-03-06 2022-03-06 Outpatient [facility] [id number] [place] 00:00:00 00:00:00 JORDAN Daigle [facility] 2021-06-22 2021-06-22 Outpatient R [facility]PH [id number] Univers 08:29:00 10:50:00 [facility] 2021-06-22 2021-06-22 [facility] 1.2.840.114 [id number] Univers 08:29:00 10:50:00 Encounter Amber PALMA 350.1.13.10 [place] [id number] [facility] 071 Branch 2021-06-22 2021-06-22 Surgery [facility] 1.2.840.114 [id number] Univers 09:44:00 10:21:00 Amber PALMA 350.1.13.10 i [place] [id number] [facility] 020 Branch 2021-06-20 2021-06-20 Outpatient R [facility] [id number] Univers 15:15:00 15:15:00 [facility] 2021-06-20 2021-06-20 Hoop Riveter Marya, Adc Lab Main [facility] 1.2.8 40.114 [id number] Univers 14:23:21 14:38:21 Visit Amber Dobbs Ben PAL[place] 350.1.1 3.10 [place] [id number] Id dical NAL 353 [facility] 2021-06-08 2021-06-08 [facility] [id number] Univers 06:59:00 09:44:00 AMBER itabdulkadir [facility] 2021-06-08 2021-06-08 Hospital [facility] 1.2.840.114 [id number] Univers 06:59:00 09:44:00 Encounter Amber PALMA 350.1.13.10 [place] [id number] [facility] 071 [place] 2021-06-08 2021-06-08 [facility] 1.2.840.114 [id number] Univers 08:04:00 08:39:00 Amber PALMA 350.1.13.10 i [place] [id number] [facility] 020 Branch 2021-06-06 2021-06-06 [facility] [id number] Univers 14:30:00 14:30:00 AMBER iram [facility] 2021-06-06 2021-06-06 Laboratory Only, Adc Test [facility] 1.2.840. 114 [id number] Univers 07:52:05 08:07:05 Only Amber Dobbs [place] 350.1.1 3.10 [place] [id number] [facility] 353 [place] 2021-06-02 2021-06-02 Hoop Riveter Marya, Adc Lab Main [facility] 1.2.8 40.114 [id number] Univers 10:18:35 10:33:35 Visit Rinku Amber Palma 350.1.1 3.10 [place] Profess[place] [id number] Me dical nal 353 [facility] 2021-06-02 2021-06-02 Outpatient Tj DOBBS, [facility] [id number] Univers 09:00:00 09:00:00 AMBER hernandezabdulkadir [facility] 2021-06-02 2021-06-02 Orders Doctor GILDA 1.2.840.114 [id number] Univers 00:00:00 00:00:00 Only Unassigned, BAL[place] 350.1.13.10 ity of [facility] 4.2.7.2.686 Rudi as [id number] [address] 2021-06-01 2021-06-01 Outpatient Tj DOBBS, [facility] [id number] [facility] 15:45:00 15:45:00 AMBER walden [facility] 2020-08-26 2020-08-26 Outpatient DENA [facility] [id number] [place] 00:00:00 00:00:00 017 Method i 2020-07-18 2020-07-18 Outpatient DENA [facility] [id number] [place] 00:00:00 00:00:00 905 Method i 2020-07-15 2020-07-15 Outpatient DENA [facility] [id number] [place] 00:00:00 00:00:00 337 Method i 2020-07-15 2020-07-15 Outpatient DENA [facility] [id number] [place] 00:00:00 00:00:00 359 Method i 2020-05-18 2020-05-18 [facility] 1.2.840.114 [id number] Univers 07:29:00 11:07:00 Encounter Elissa davis 350.1.13.10 [place] Surgical [id number] Med ical [address] 2020-05-18 2020-05-18 [facility] 1.2.840.114 [id number] 07:29:00 11:07:00 Encounter Elissa davis 350.1.13.10 [place] 4.2.7.2.686 Surgical [id number] [place] [address] 2020-05-17 2020-05-17 Laboratory Only, Adc Test [facility] 1.2.840. 114 [id number] [facility] 09:32:41 09:47:41 Only JeromyAmber 350.1.13.10 iram [facility] 4.2.7.2.686 [facility] [id number] [address] 2020-05-17 2020-05-17 Laboratory Only, [facility] 1.2.840.114 [id number] 09:32:41 09:47:41 Only Test Kai 350.1.13.10 [place] 4.2.7.2.686 [place] [id number] [facility] 2020-05-17 2020-05-17 Outpatient R JEROMY [facility] [id number] [facility] 09:45:00 09:45:00 AMBER walden [facility] Results Test Description Test Time Test Comments Results Result Comments Source ECG 12 lead 2022-03-07 17:25:45 Test Item Value Reference Range Interpretation Comme nts Ventricular rate (test code = 253) Atrial rate (test code = 255) OR interval (test code = 266) QRSD interval (test code = 260) QT interval (test code = 264) QTC interval (test code = 265) P axis 1 (test code = 267) QRS axis 1 (test code = 268) T wave axis (test code = 270) EKG impression (test code = 273) Normal sinus rhythm-Normal ECG-No previous ECGs available- [facility]
[2022-07-08] MEDS ORDERED: ONDANSETRON 4 MG/2 ML VIAL ONE (17:10)
[2022-07-08] MEDS ORDERED: MORPHINE 4 MG/ML SYR ONE ×2 (17:10→21:34)
[2022-07-08 17:13] LABS: Absolute Lymphocytes (CBC) 2.3 K/uL (0.7-4.9); Hematocrit 37.3 % (36.0-45.0); Lymphocytes % 8.3 % (15.3-44.8); MCV 88.3 fL (80-100); MPV 8.2 fL (7.6-11.3); RBC Red Blood Cell Count 4.22 M/uL (3.86-4.86)
[2022-07-08 17:32] LABS: Magnesium 2.1 mg/dL (1.8-2.4); Potassium 3.4 mmol/L (3.5-5.1); Troponin High Sensitivity 10.2 pg/mL (<58.9)
[2022-07-08 17:54] LABS: Blood Morphology Comment NOT SEEN (NOT SEEN); Platelet Estimate ADEQ
[2022-07-08] MEDS ORDERED: ACETAMINOPHEN 500 MG TAB ONE (17:58)
--- NOTE | 2022-07-08 18:11 | RAD REPORT ---
EXAM DESCRIPTION: CT - Chest For Pe Angio - 07/08/2022 5:42 pm CLINICAL HISTORY: Chest pain COMPARISON: None. TECHNIQUE: Dynamically enhanced axial 3 mm thick images of the chest were obtained during administra tion of <150 mL Isovue 370 IV contrast. Coronal and oblique reconstruction images were generated and reviewed. Exam utilizes a protocol for optimal evaluation of pulmonary arterial tree. Maximum intensity projections 3D imaging was utilized All CT scans are performed using dose optimization technique as appropriate and may include automated exposure control or mA/KV adjustment according to patient size. FINDINGS: A pulmonary embolus is not seen. A thoracic aortic aneurysm is not noted. A pleural effusion is not seen. A pericardial effusion is not seen. 5 centimeter lingular opacity IMPRESSION: Negative for a pulmonary embolism. Lingular opacity probably pneumonia. This should be followed until it is clear to help exclude a post obstructive process/underlying mass
--- NOTE | 2022-07-08 18:12 | RAD REPORT ---
EXAM DESCRIPTION: Dane Angio07/08/2022 5:42 pm CLINICAL HISTORY: Neck pain COMPARISON: None TECHNIQUE: 150 cc Isovue 370 was administered intravenously. 3D MIP reconstruction performed All CT scans are performed using dose optimization technique as appropriate and may include automated exposure control or mA/KV adjustment according to patient size. FINDINGS: The common carotid, internal carotid and external carotid arteries bilaterally appear unre markable. No significant plaque noted. The right vertebral artery is more dominant than the left. No significant stenosis. No dissection seen IMPRESSION: No significant abnormality is displayed NASCET criteria used. Mild 0-49% stenosis Moderate 50-69% stenosis Severe 70-99% stenosis
--- NOTE | 2022-07-08 18:13 | RAD REPORT ---
EXAM DESCRIPTION: Lore Single View07/08/2022 5:04 pm CLINICAL HISTORY: Chest pain COMPARISON: none FINDINGS: Lngular opacity The remainder of the lungs appear clear of acute infiltrate. The heart is normal size IMPRESSION: Lingular opacity probably pneumonia. This should be followed until it is clear to exclu de a post obstructive process/underlying mass
[2022-07-08 18:35] LABS: Protime INR 1.15
--- NOTE | 2022-07-08 18:42 | ER ---
Nurse's Notes [facility] Name: Yodit Gross Age: 71 yrs Sex: Female : 1950 Arrival Date: 07/08/2022 Time: 16:39 Bed 23 Private MD: Diagnosis: Acute respiratory failure with hypoxia;Other pneumonia, unspecified organism;Leukocytosis Presentation: 07/08 17:09 Chief complaint: Patient states: moved my pot plants yesterday and I was ok then around kr3 11 pm last night I started having chest pain, neck, chicas and leg pain all on the left side. Coronavirus screen: Vaccine status: Patient reports receiving the 2nd dose of the covid vaccine. Ebola Screen: Patient denies travel to an Ebola-affected area in the 21 days before illness onset. Initial Sepsis Screen: Does the patient meet any 2 criteria? RR > 20 per min. Temp <36.0*C (96.8*F)) or > 38.3*C (100.9*F). Yes Does the patient have a suspected source of infection? No. Patient's initial sepsis screen is negative. Initial Sepsis Screen: Does the patient have a suspected source of infection? Yes: Other: unknown. Risk Assessment: Do you want to hurt yourself or someone else? Patient reports no desire to harm self or others. Onset of symptoms was July 07, 2022. 17:09 Method Of Arrival: Wheelchair kr3 17:09 Acuity: MERRITT 3 kr3 Triage Assessment: 17:19 General: Appears distressed, uncomfortable, Behavior is cooperative, anxious. Pain:. kr3 Cardiovascular: Patient's skin is warm and dry. 17:31 EENT: No signs and/or symptoms were reported regarding the EENT system. Neuro: Level of kr3 Consciousness is awake, alert, obeys commands. Respiratory: Airway is patent Respiratory effort is labored, gasping. GI: Abdomen is flat, non-distended. : No signs and/or symptoms were reported regarding the genitourinary system. Derm: Skin is intact. Musculoskeletal: Circulation, motion, and sensation intact. Historical: - Allergies: 07/09 00:28 Codeine; kd3 - PMHx: 00:28 Hyperlipidemia; RA; kd3 - Immunization history:: Adult Immunizations up to date. - Social history:: Smoking status: unknown. Screenin:28 Abuse screen: Denies threats or abuse. Denies injuries from another. Nutritional kd3 screening: No deficits noted. Tuberculosis screening: No symptoms or risk factors identified. Fall Risk None identified. Assessment: 07/08 17:52 Reassessment: Patient and/or family updated on plan of care and expected duration. Pain kr3 level reassessed. Patient is alert, oriented x 3, equal unlabored respirations, skin warm/dry/pink. Patient states symptoms have improved. 19:05 Reassessment: No changes from previously documented assessment. Patient and/or family kr3 updated on plan of care and expected duration. Pain level reassessed. Patient is alert, oriented x 3, equal unlabored respirations, skin warm/dry/pink. 07/09 00:29 Pain: Pain does not radiate. Pain began gradually. kd3 Vital Signs: 07/08 17:09 BP 118 / 61; Pulse 76; Resp 22; Temp 101.0(A); Pulse Ox 100% ; Weight 74.84 kg; Height kr3 5 ft. 5 in. (165.10 cm); Pain 10/10; 19:05 BP 116 / 59; Pulse 92; Resp 18; Pulse Ox 99% on 1.5 lpm NC; kr3 20:12 BP 102 / 57; Pulse 88; Resp 17; Pulse Ox 99% ; rv1 17:09 Body Mass Index 27.46 (74.84 kg, 165.10 cm) kr3 ED Course: 16:39 Patient arrived in ED. jl7 16:42 Kati Velazco, RN is Primary Nurse. kr3 16:42 Client placed on continuous cardiac and pulse oximetry monitoring. NIBP monitoring jl7 applied. 16:42 Patient has correct armband on for positive identification. Placed in gown. Bed in low jl7 position. Call light in reach. Side rails up X2. 16:46 Malcolm Werner DO is Attending Physician. ms3 17:06 XRAY Chest (1 view) In Process Unspecified. EDMS 17:08 Oxygen administration via non-rebreather mask \T\ 15L/min Response to oxygen therapy: jl7 symptoms improved. 17:08 Initial lab(s) drawn, by me, sent to lab. EKG done, by ED staff, reviewed by Malcolm Werner DO. Inserted saline lock: 20 gauge in right antecubital area, using aseptic technique. Blood collected. 17:19 Triage completed. kr3 17:43 Chest For Pe Angio In Process Unspecified. EDMS 17:44 Neck Angio In Process Unspecified. EDMS 18:22 Ptt, Activated Sent. kr3 18:22 Protime (+inr) Sent. kr3 18:22 Lactate w/ 2H reflex if indic. Sent. kr3 18:22 CMP Sent. kr3 18:22 Blood Culture Adult (2) Sent. kr3 18:41 Malia Fernandez MD is Hospitalizing Provider. ms3 20:20 Ray Weeks MD is Hospitalizing Provider. sb4 07/09 00:28 No provider procedures requiring assistance completed. Patient admitted, IV remains in kd3 place. 00:29 Arm band placed on. kd3 Administered Medications: 07/08 17:10 Drug: Zofran (Ondansetron) 4 mg Route: IVP; Site: right antecubital; kr3 19:04 Follow up: Response: No adverse reaction kr3 17:15 Drug: morphine 4 mg Route: IVP; Infused Over: 4 mins; Site: right antecubital; kr3 19:03 Follow up: Response: No adverse reaction; RASS: Alert and Calm (0) kr3 18:22 Drug: Acetaminophen 1000 mg Route: PO; kr3 23:20 Follow up: Response: No adverse reaction kd3 18:55 Drug: Rocephin (cefTRIAXone) 1 grams Route: IV; Rate: calculated rate; Site: right kr3 antecubital; 19:04 Follow up: Response: No adverse reaction; IV Status: Completed infusion; IV Intake: [id number] 18:58 Drug: AZITHromycin 500 mg Route: IVPB; Infused Over: 1 hrs; Site: right antecubital; kr3 23:20 Follow up: IV Status: Completed infusion kd3 19:16 Not Given (Physician Discretion): Aspirin Chewable Tablet 324 mg PO once; 81 mg tablets kr3 x 4 23:20 Not Given (blood pressure low ): morphine 4 mg IVP once over 4 mins kd3 Medication: 07/09 00:29 VIS not applicable for this client. kd3 Intake: 07/08 19:04 IV: 10ml; Total: 10ml. kr3 Outcome: 18:42 Decision to Hospitalize by Provider. ms3 07/09 00:28 Admitted to ER Hold. Please see [facility] for further documentation. kd3 Condition: stable Discharge instructions given to patient, Instructed on the need for admit, Demonstrated understanding of instructions. 20:22 Patient left the ED. bb Signatures: Dispatcher [employer] EDYodit Womack, RN RN bb Thao Rodrigues RN RN jl7 Malcolm Werner DO DO ms3 Jessenia Golden RN RN kd3 Patricia Ramires RN RN aa9 Kati Velazco RN RN eduin3 Sienna Howell, PA-C PA-C sb4 Seble Garcia rv1 Corrections: (The following items were deleted from the chart) 07/08 21:42 21:33 morphine 4 mg IVP in right antecubital over 4 mins aa9 aa9
--- NOTE | 2022-07-08 18:42 | EDPHYS ---
Physician Documentation [facility] Name: Yodit Gross Age: 71 yrs Sex: Female : 1950 Arrival Date: 07/08/2022 Time: 16:39 Bed 23 Private MD: ED Physician Malcolm Werner HPI: 07/08 16:58 This 71 yrs old Female presents to ER via Unassigned with complaints of Chest Pain, ms3 Chest Tightness, Nausea/Vomiting. 16:58 The patient or guardian reports chest pain that is located primarily in the anterior ms3 aspect of left upper chest. Onset: yesterday. The pain radiates to down left side of her body. Associated signs and symptoms: Pertinent negatives: abdominal pain, nausea, vomiting. The chest pain is described as sharp. Duration: The patient or guardian reports a single episode, that is still ongoing. Modifying factors: The symptoms are alleviated by nothing. the symptoms are aggravated by nothing. Severity of pain: At its worst the pain was severe in the emergency department the pain is unchanged is a . Historical: - Allergies: 07/09 00:28 Codeine; kd3 - PMHx: 00:28 Hyperlipidemia; RA; kd3 - Immunization history:: Adult Immunizations up to date. - Social history:: Smoking status: unknown. ROS: 07/08 16:58 Constitutional: Negative for fever, and chills. Eyes: Negative for injury, pain, ms3 redness, and discharge, ENT: Negative for injury, pain, and discharge. Cardiovascular: Negative for chest pain, and palpitations. Respiratory: Negative for shortness of breath, cough, wheezing, and pleuritic chest pain, Abdomen/GI: Negative for abdominal pain, nausea, vomiting, diarrhea, and constipation, Skin: Negative for injury, rash, and discoloration, Neuro: Negative for headache, weakness, numbness, tingling. Neck: Positive for pain at rest. All other systems are negative. Exam: 16:55 ECG was reviewed by the Attending Physician. ms3 16:58 Constitutional: This is a well developed, well nourished patient who is awake, alert, ms3 and in no acute distress. Head/Face: Normocephalic, atraumatic. Chest/axilla: Normal chest wall appearance and motion. Nontender with no deformity. Cardiovascular: Regular rate and rhythm with a normal S1 and S2. No gallops, murmurs, or rubs. Normal PMI, no JVD. No pulse deficits. Respiratory: Lungs have equal breath sounds bilaterally, clear to auscultation and percussion. No rales, rhonchi or wheezes noted. No increased work of breathing, no retractions or nasal flaring. 17:02 Skin: Warm, dry with normal turgor. Normal color with no rashes, no lesions, and no ms3 evidence of cellulitis. MS/ Extremity: Pulses equal, no cyanosis. Neurovascular intact. Full, normal range of motion. 17:02 Neck: External neck: tenderness, that is moderate, left lateral neck, Trachea: is midline with no obvious abnormalities, ROM/movement: is normal. Vital Signs: 17:09 BP 118 / 61; Pulse 76; Resp 22; Temp 101.0(A); Pulse Ox 100% ; Weight 74.84 kg; Height kr3 5 ft. 5 in. (165.10 cm); Pain 10/10; 19:05 BP 116 / 59; Pulse 92; Resp 18; Pulse Ox 99% on 1.5 lpm NC; kr3 20:12 BP 102 / 57; Pulse 88; Resp 17; Pulse Ox 99% ; rv1 17:09 Body Mass Index 27.46 (74.84 kg, 165.10 cm) kr3 MDM: 16:56 Patient medically screened. ms3 17:02 Differential diagnosis: abnormal EKG, acute myocardial infarction, pericarditis, ms3 pneumonia, pneumothorax, pulmonary embolus. 19:11 HEART Score: History: Slightly Suspicious (0), ECG: Non specific repolarization ms3 disturbance / LBTB / PM (1), Age: > or = 65 years (2), Risk Factors: No Risk Factors Known (0), Troponin: < or = 1 x Normal Limit (0), Total Score = 3. Data reviewed: vital signs, nurses notes, lab test result(s), EKG, radiologic studies, and as a result, I will admit patient. 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 Counseling: I had a detailed discussion with the patient and/or guardian regarding: the historical points, exam findings, and any diagnostic results supporting the discharge/admit diagnosis, lab results, radiology results, the need for further work-up and treatment in the hospital. ED course: Discussed case with RIC Medina, and she accepts patient on behalf of Dr. Fernandez. All questions were answered. Discussed plan for admission with patient and her and they understand and agree with plan. 07/08 16:47 Order name: Basic Metabolic Panel; Complete Time: 18:00 ms3 07/08 16:47 Order name: CBC with Diff; Complete Time: 18:00 ms3 07/08 16:47 Order name: Magnesium; Complete Time: 18:00 ms3 07/08 16:47 Order name: NT PRO-BNP; Complete Time: 18:00 ms3 07/08 16:47 Order name: Troponin HS; Complete Time: 18:00 ms3 07/08 17:16 Order name: Blood Culture Adult (2) ms3 07/08 17:16 Order name: CMP; Complete Time: 18:59 ms3 07/08 17:16 Order name: Lactate w/ 2H reflex if indic.; Complete Time: 18:59 ms3 07/08 17:16 Order name: Protime (+inr); Complete Time: 18:43 ms3 07/08 17:16 Order name: Ptt, Activated; Complete Time: 18:43 ms3 07/08 17:17 Order name: Manual Differential; Complete Time: 18:00 EDMS 07/08 17:17 Order name: Urinalysis ms3 07/09 00:10 Order name: Urine Dipstick-Ancillary; Complete Time: 03:41 EDMS 07/09 00:13 Order name: Urine Microscopic Only sb4 07/08 16:47 Order name: XRAY Chest (1 view); Complete Time: 18:29 ms3 07/08 16:57 Order name: CT Chest For PE Angio ms3 07/08 17:09 Order name: Chest For Pe Angio; Complete Time: 18:29 EDMS 07/08 17:11 Order name: Neck Angio; Complete Time: 18:29 EDMS 07/09 00:53 Order name: Urine Microscopic Only; Complete Time: 03:41 EDMS 07/09 02:51 Order name: CBC with Automated Diff; Complete Time: 03:41 EDMS 07/09 03:18 Order name: Comprehensive Metabolic Panel; Complete Time: 03:41 EDMS 07/09 03:18 Order name: Phosphorus; Complete Time: 03:41 EDMS 07/09 03:18 Order name: Lipid Profile; Complete Time: 03:41 EDMS 07/09 03:18 Order name: Magnesium; Complete Time: 03:41 EDMS 07/09 03:18 Order name: Thyroid Stimulating Hormone; Complete Time: 03:41 EDMS 07/09 16:45 Order name: Gram Stain--Anaerobic Bottle EDMS 07/09 19:33 Order name: SARS RAPID mw2 07/09 20:10 Order name: SARS-COV-2 Antigen Rapid EDMS 07/08 16:47 Order name: EKG; Complete Time: 16:48 ms3 07/08 16:47 Order name: Cardiac monitoring; Complete Time: 17:07 ms3 07/08 16:47 Order name: EKG - Nurse/Tech; Complete Time: 17:07 ms3 07/08 16:47 Order name: IV Saline Lock; Complete Time: 17:07 ms3 07/08 16:47 Order name: Labs collected and sent; Complete Time: 17:07 ms3 07/08 16:47 Order name: O2 Per Protocol; Complete Time: 17:07 ms3 07/08 16:47 Order name: O2 Sat Monitoring; Complete Time: 17:07 ms3 07/08 17:16 Order name: Accucheck; Complete Time: 23:21 ms3 07/08 17:16 Order name: IV Saline Lock - Large Bore; Complete Time: 17:47 ms3 07/08 17:16 Order name: Vital Signs; Complete Time: 17:47 ms3 07/08 17:17 Order name: Urine Dipstick-Ancillary (obtain specimen); Complete Time: 00:28 ms3 EC:55 Rate is 83 beats/min. Rhythm is regular. QRS [place] is Normal. VA interval is normal. QRS ms3 interval is normal. Clinical impression: Normal ECG and with fusion complexes. Interpreted by me. Reviewed by me. Administered Medications: 17:10 Drug: Zofran (Ondansetron) 4 mg Route: IVP; Site: right antecubital; kr3 19:04 Follow up: Response: No adverse reaction kr3 17:15 Drug: morphine 4 mg Route: IVP; Infused Over: 4 mins; Site: right antecubital; kr3 19:03 Follow up: Response: No adverse reaction; RASS: Alert and Calm (0) kr3 18:22 Drug: Acetaminophen 1000 mg Route: PO; kr3 23:20 Follow up: Response: No adverse reaction kd3 18:55 Drug: Rocephin (cefTRIAXone) 1 grams Route: IV; Rate: calculated rate; Site: right kr3 antecubital; 19:04 Follow up: Response: No adverse reaction; IV Status: Completed infusion; IV Intake: [id number] 18:58 Drug: AZITHromycin 500 mg Route: IVPB; Infused Over: 1 hrs; Site: right antecubital; kr3 23:20 Follow up: IV Status: Completed infusion kd3 19:16 Not Given (Physician Discretion): Aspirin Chewable Tablet 324 mg PO once; 81 mg tablets kr3 x 4 23:20 Not Given (blood pressure low ): morphine 4 mg IVP once over 4 mins kd3 Disposition Summary: 07/08/22 18:42 Hospitalization Ordered Hospitalization Status: Inpatient Admission ms3 Condition: Stable ms3 Problem: new ms3 Symptoms: are unchanged ms3 Bed/Room Type: Standard ms3 Provider: Ray Weeks(07/08/22 20:20) sb4 Location: Telemetry/MedSurg (Inpatient)(07/09/22 19:34) cg Room Assignment: [facility](07/09/22 19:34) cg Diagnosis - Acute respiratory failure with hypoxia ms3 - Other pneumonia, unspecified organism ms3 - Leukocytosis ms3 Forms: - Medication Reconciliation Form ms3 - SBAR form ms3 Signatures: Dispatcher [employer] Myra Tiwari RN Malcolm Avitia DO DO ms3 Jessenia Golden RN LAURA kd3 Patricia Ramires RN RN Kati Roberts RN RN [email or web address] Sienna Howell PA-C PACyndie sb4 Corrections: (The following items were deleted from the chart) 17:03 16:58 Constitutional: This is a well developed, well nourished patient who is awake, ms3 alert, and in no acute distress. Head/Face: Normocephalic, atraumatic. ms3 17:10 17:09 Chest Angio ordered. EDIA EDMS 18:48 18:42 Telemetry/MedSurg (Inpatient) ms3 cg 18:48 18:42 ms3 cg 20:20 18:42 Malia Fernandez ms3 sb4 07/09 19:34 07/08 18:48 [facility] ER HOLD cg cg 07/09 19:34 07/08 18:48 ERHOLD- cg cg
[2022-07-08] MEDS ORDERED: NA CHLORIDE 0.9% 250 ML ONE (18:44)
[2022-07-08] MEDS ORDERED: AZITHROMYCIN 500 MG INJ IVPB ONE (18:44)
[2022-07-08] MEDS ORDERED: CEFTRIAXONE 1000 MG/VIAL ONE (18:44)
[2022-07-08 18:48] LABS: Albumin 3.1 g/dL (3.4-5.0); Potassium 3.1 mmol/L (3.5-5.1); Protein, Total 6.4 g/dL (6.4-8.2)
--- NOTE | 2022-07-08 20:28 | P.HP ---
Certification for Inpatient Patient admitted to: Inpatient With expected LOS: >2 Midnights Patient will require the following post-hospital care: None Practitioner: I am a practitioner with admitting privileges, knowledge of patient current condition, hospital course, and medical plan of care. Services: Services provided to patient in accordance with Admission requirements found in Title 42 Section 412.3 of the Code of Federal Regulations Patient History Date of Service: 07/08/22 Primary Care Provider: Mick Reason for admission: Pneumonia History of Present Illness: Patient is a 71 year old female with past medical history of hyperlipidemia and rheumatoid arthritis who presented to the emergency department with complaints of neck pain, chest pain, and leg pain secondary to physical activity yesterday (moving her potted plants). She was noted to be febrile at 101F and tachypneic upon arrival but saturating appropriately on room air. Her labs are significant for WBC 27.4, potassium 3.1, BNP 1282, lactate and troponin within normal limits. EKG without ST changes. Chest xray and chest CT angio showed "Lingular opacity probably pneumonia. This should be followed until it is clear to help exclude a post obstructive process/underlying mass. Negative for PE." Neck CTA negative. She given 1 gram Tylenol, morphine, zofran, azithromycin, and rocephin in ED. She is now requiring 1.5 L supplemental O2. Patient is admitted for further management. Allergies codeine Allergy (Verified 08/02/14 01:34) Itching Home medications list reviewed: Yes Home Medications: Adalimumab [Humira 40 MG/0.8 ML] 40 mg SQ Q15D 08/02/14 Methotrexate [Methotrexate*] 2.5 mg PO Q7D 08/02/14 Rosuvastatin [Crestor] 10 mg PO DAILY 08/02/14 Venlafaxine HCl [Venlafaxine HCl ER] 150 mg PO DAILY 08/02/14 Promethazine Tab [Phenergan -Tab] 25 mg PO Q6HP PRN #10 tab 08/03/14 Tramadol HCl/Acetaminophen [Ultracet Tablet] 1 - 2 tab PO Q4HP PRN #30 tablet 08/03/14 levoFLOXacin [Levaquin] 750 mg PO DAILY #5 tab 08/03/14 - Past Medical/Surgical History Diabetic: No -: RA -: Hyperlipidemia -: multiple feet sx -: right hand sx -: hysterectomy -: Appendectomy Psychosocial/ Personal History: Patient lives at home with her . - Family History Mother -: Heart disease Father -: Cancer Brother -: Heart disease - Social History Smoking Status: Never smoker Alcohol use: No CD- Drugs: No Caffeine use: No Place of Residence: Home Review of Systems General: Fever Respiratory: Cough, Shortness of Breath Cardiovascular: Chest Pain Gastrointestinal: Nausea Musculoskeletal: Neck Pain, Leg Pain Physical Examination - Vital Signs Temperature: 101.1 F Blood Pressure: 102/57 Pulse: 88 Respirations: 17 Pulse Ox (%): 99 (1.5 lpm NC) - Physical Exam General: Alert, In no apparent distress, Oriented x3 HEENT: Atraumatic, PERRLA, EOMI, Sclerae nonicteric Neck: Supple, 2+ carotid pulse no bruit, No LAD, Without JVD or thyroid abnormality Respiratory: Clear to auscultation bilaterally, Normal air movement Cardiovascular: Regular rate/rhythm, Normal S1 S2 Gastrointestinal: Normal bowel sounds, No tenderness Musculoskeletal: No tenderness Integumentary: No rashes Neurological: Normal speech, Normal strength at 5/5 x4 extr, Normal tone, Normal affect - Studies Laboratory Data (last 24 hrs) 07/08/22 18:10: PT 12.6 H, INR 1.15, APTT 33.0 07/08/22 18:10: Sodium 135 L, Potassium 3.1 L, BUN 16, Creatinine 0.93, Glucose 99, Total Bilirubin 1.0, AST 10 L, ALT 14, Alkaline Phosphatase 91 07/08/22 17:01: WBC 27.40 H*, Hgb 12.4, Hct 37.3, Plt Count 305 07/08/22 17:01: Sodium 136, Potassium 3.4 L, BUN 16, Creatinine 0.96, Glucose 109 H, Magnesium 2.1 Assessment and Plan - Problems (Diagnosis) (1) Pneumonia Current Visit: Yes Status: Acute Qualifiers: Pneumonia type: due to unspecified organism Laterality: left Lung location: lower lobe of lung Qualified Code(s): J18.9 - Pneumonia, unspecified organism (2) Rheumatoid arthritis Current Visit: Yes Status: Chronic Qualifiers: Rheumatoid arthritis location: unspecified site Rheumatoid factor presence: unspecified presence Qualified Code(s): M06.9 - Rheumatoid arthritis, unspecified (3) Hypokalemia Current Visit: Yes Status: Acute (4) Hyperlipidemia Current Visit: Yes Status: Chronic Qualifiers: Hyperlipidemia type: unspecified Qualified Code(s): E78.5 - Hyperlipidemia, unspecified - Plan Continue azithromycin and rocephin for lingular pneumonia. Not meeting sepsis criteria. Supportive measures with breathing treatments PRN, IV solumedrol, antitussives, and guafinsein. Patient on 1.5 L NC as of now. Titrate and wean as tolerated. Pulmonology consult. Blood and sputum cultures obtained. Monitor and replete electrolytes per protocol. Reconcile and continue home medications. Lovenox for VTE prophylaxis. Full code Discharge Plan: Home Plan to discharge in: Greater than 2 days - Advance Directives Does patient have a Living Will: No Does patient have a Durable POA for Healthcare: No - Code Status/Comfort Care Code Status Assessed: Yes (Full) Critical Care: No Time Spent Managing Pts Care (In Minutes): 50
[2022-07-08] MEDS ORDERED: ONDANSETRON 4 MG/2 ML VIAL IV PRN (20:58)
[2022-07-08] MEDS ORDERED: ALBUTEROL 2.5 MG/3 ML NEB SOL NEB PRN (20:58)
[2022-07-08] MEDS ORDERED: BENZONATATE 100 MG CAP PO PRN (20:58)
[2022-07-08] MEDS ORDERED: GUAIFENESIN 600 MG SA TAB PO SCH (21:00)
[2022-07-08] MEDS ORDERED: ACETAMINOPHEN 325 MG TABLET ONE (21:45)
[2022-07-08] MEDS: ACETAMINOPHEN 500 MG TAB PO PRN (21:47)
[2022-07-08] MEDS ORDERED: GUAIFENESIN 600 MG SA TAB PO PRN (22:40)
[2022-07-08] MEDS ORDERED: MORPHINE 2 MG/ML SYR IV PRN (22:41)
[2022-07-08] MEDS ORDERED: POTASSIUM 25 MEQ EFFERV TAB PO ONE (23:46)
[2022-07-08] MEDS ORDERED: POTASSIUM 25 MEQ EFFERV TAB ONE (23:55)
[2022-07-08] MEDS ORDERED: METHYLPREDNISOLONE 40 MG INJ ONE (23:55)
[2022-07-08] MEDS ORDERED: NA CHLORIDE 0.9% 250 ML IV ONE (23:56)
[2022-07-09] MEDS ORDERED: NA CHLORIDE 0.9% 250 ML ONE
[2022-07-09 00:10] LABS: Urine Blood 2+ (Negative); Urine Glucose Negative (Negative); Urine Protein Negative (Negative); Urine pH 5.5 (5.0-7.0)
[2022-07-09] MEDS: METHYLPREDNISOLONE 40 MG INJ IV SCH ×3 (00:16→17:00)
[2022-07-09] MEDS ORDERED: MORPHINE 2 MG/ML SYR ONE ×3 (00:34→10:08)
[2022-07-09 00:53] LABS: Urine Bacteria 20-50 /HPF (<20); Urine Mucus Slight /HPF (None Seen); Urine RBC <5 /HPF (None Seen)
[2022-07-09 01:05] VITALS: BMI 27.3
[2022-07-09 02:44] LABS: Absolute Lymphocytes (CBC) 1.2 K/uL (0.7-4.9); Hematocrit 35.1 % (36.0-45.0); Lymphocytes % 5.9 % (15.3-44.8); MCV 89.1 fL (80-100); MPV 8.8 fL (7.6-11.3); RBC Red Blood Cell Count 3.94 M/uL (3.86-4.86)
[2022-07-09 03:15] LABS: Bilirubin Total 0.6 mg/dL (0.2-1.0); Magnesium 2.5 mg/dL (1.8-2.4); Phosphorus 2.7 mg/dL (2.5-4.9); Potassium 4.1 mmol/L (3.5-5.1); Protein, Total 6.4 g/dL (6.4-8.2)
[2022-07-09 03:16] LABS: Thyroid Stimulating Hormone 1.89 uIU/mL (0.360-3.740)
[2022-07-09] MEDS ORDERED: INFLUENZA VACCINE (for 6+ mo) 0.5 ML DOSE IMVAC ONE (08:00)
[2022-07-09] MEDS ORDERED: PNEUMOCOCCAL VACCINE 0.5 ML IMVAC ONE (08:00)
[2022-07-09] MEDS ORDERED: METHYLPREDNISOLONE 40 MG INJ ONE ×2 (08:21→18:06)
[2022-07-09] MEDS ORDERED: ENOXAPARIN 40 MG/0.4 ML SQ ONE (08:21)
[2022-07-09] MEDS: ENOXAPARIN 40 MG/0.4 ML SQ SCH (09:00)
--- NOTE | 2022-07-09 12:50 | EKG ---
Test Date: 2022-07-08 Test Time: 16:55:50 Color Blender: ENMA MEASUREMENT RESULTS: Intervals: Rate: 83 WV: 146 QRSD: 70 QT: 374 QTc: 439 [place]: P: 50 WV: 146 QRS: 46 T: 68 INTERPRETIVE STATEMENTS: Sinus rhythm with fusion complexes Otherwise normal ECG Compared to ECG 05/06/2010 19:21:29 Fusion complex(es) now present Electronically Signed On 07-09-22 12:48:53 SET UP TECHNICIAN by Carlos Park
[2022-07-09] MEDS ORDERED: ACETAMINOPHEN 325 MG TABLET ONE (16:20)
[2022-07-09] MEDS: ACETAMINOPHEN 500 MG TAB PO PRN (16:22)
--- NOTE | 2022-07-09 17:59 | P.PN ---
Date of Service: 07/09/22 Subjective: slight improvement compared to when she first arrived ROS: 10 point ROS as noted above, otherwise negative Physical exam GEN: Alert, oriented, NAD HEENT: Normal conjunctiva, sclera anicteric CV: Regular rate and rhythm, 1+ edema Pulm: Nonlabored respirations on 4L ABD: Soft, nontender, nondistended Neuro: Normal speech, normal affect Problem List Pneumonia Rheumatoid arthritis Hypokalemia Hyperlipidemia Patient with minimal difference compared to yesterday Continue empiric antibiotics leukocytosis improved Continue breathing treatments, antitussives, guaifenesin Wean oxygen as tolerated Pulmonology consulted VTE: Lovenox Code: Full Dispo: Home, 2-3 days Time Spent Managing Pts Care (In Minutes): 35
[2022-07-09] MEDS ORDERED: ONDANSETRON 4 MG/2 ML VIAL ONE (18:00)
[2022-07-09] MEDS ORDERED: MELATONIN 5 MG TABLET PO PRN (18:00)
[2022-07-09] MEDS ORDERED: CEFTRIAXONE 1000 MG/VIAL ONE (18:07)
[2022-07-09] MEDS ORDERED: NA CHLORIDE 0.9% 0 ML IV ONE (18:07)
[2022-07-09] MEDS ORDERED: NA CHLORIDE 0.9% 50 ML IV ONE (18:35)
[2022-07-09] MEDS ORDERED: CEFTRIAXONE 1,000 MG in NA CHLORIDE 0.9% 50 ML IVPB SCH (19:00)
[2022-07-09 20:09] LABS: SARS-CoV-2 Antigen Rapid Res Negative (Negative)
[2022-07-09] MEDS ORDERED: AZITHROMYCIN IV 500 MG in NA CHLORIDE 0.9% 250 ML IVPB SCH (21:00)
[2022-07-10] MEDS: METHYLPREDNISOLONE 40 MG INJ IV SCH (01:44)
[2022-07-10 03:51] LABS: Absolute Lymphocytes (CBC) 1.5 K/uL (0.7-4.9); Hematocrit 38.9 % (36.0-45.0); Lymphocytes % 6.9 % (15.3-44.8); MCV 89.6 fL (80-100); MPV 8.9 fL (7.6-11.3); RBC Red Blood Cell Count 4.34 M/uL (3.86-4.86)
[2022-07-10 04:05] LABS: Bilirubin Total 0.3 mg/dL (0.2-1.0); Potassium 4.3 mmol/L (3.5-5.1); Protein, Total 6.6 g/dL (6.4-8.2)
[2022-07-10 04:06] LABS: Albumin 2.9 g/dL (3.4-5.0)
[2022-07-10 06:20] VITALS: O2SAT 94
[2022-07-10 08:18] VITALS: BP 140/73; TEMP 97.1
--- NOTE | 2022-07-10 08:34 | P.CNS ---
Date of Consult: 07/10/22 Reason for Consult: Pneumonia left-sided pleuritic chest pain Primary Care Provider: Mick Chief Complaint: Pneumonia History of Present Illness: Patient is 71 years of age started off with acute onset of left-sided neck pain she radiated down to the left side of her chest became acutely worse unable to bring either parent and it appeared in the hospital with diagnosis of left lower lobe pneumonia today she is doing much better pain has resolved denies any fever or chills CT scan negative for pulmonary embolus Allergies codeine Allergy (Verified 08/02/14 01:34) Itching Home Medications: Rosuvastatin [Crestor] 10 mg PO DAILY 08/02/14 Tramadol HCl/Acetaminophen [Ultracet Tablet] 1 - 2 tab PO Q4HP PRN #30 tablet 08/03/14 Duloxetine HCl 1 tab PO BID 07/09/22 Meloxicam 15 mg PO DAILY 07/09/22 - Past Medical/Surgical History Diabetic: No -: RA -: Hyperlipidemia -: multiple feet sx -: right hand sx -: hysterectomy -: Appendectomy Psychosocial/ Personal History: Patient lives at home with her . - Family History Mother Medical History: Heart disease Father Medical History: Cancer Brother Medical History: Heart disease - Social History Smoking Status: Unknown if ever smoked Alcohol use: No CD- Drugs: No Caffeine use: No Place of Residence: Home Review of Systems 10-point ROS is otherwise unremarkable Physical Examination Temp Pulse Resp BP Pulse Ox 97.1 F 77 18 140/73 91 07/10/22 08:00 07/10/22 08:00 07/10/22 08:00 07/10/22 08:00 07/10/22 08:00 General: Alert, In no apparent distress Respiratory: Clear to auscultation bilaterally, Friction rub Cardiovascular: Regular rate/rhythm, Normal S1 S2 Gastrointestinal: Normal bowel sounds, Soft and benign - Problems (1) Left lower lobe pneumonia Current Visit: Yes Status: Acute Plan: Patient is 71 years of age admitted with acute left-sided pleuritic chest pain diagnosis of acute left lower lobe pneumonia patient is doing much better pain has resolved labs reviewed white count is mildly elevated hemodynamically stable CT scan reviewed appears to have a lingular pneumonia patient can be discharged home on levofloxacin for 5 days in addition to nonsteroidals [id number] follow-up with me in 2 weeks to ensure resolution of the chest x-ray patient has never smoked patient did have some fever on admission Qualifiers: Pneumonia type: due to unspecified organism Qualified Code(s): J18.9 - Pneumonia, unspecified organism
[2022-07-10] MEDS: ENOXAPARIN 40 MG/0.4 ML SQ SCH (08:42)
[2022-07-10] MEDS ORDERED: levoFLOXacin 750 MG TAB PO SCH (09:00)
[2022-07-10] MEDS ORDERED: MELOXICAM 7.5 MG TAB PO SCH (09:00)
[2022-07-10] MEDS ORDERED: DULOXETINE 30 MG CAP PO SCH (09:00)
[2022-07-10] MEDS ORDERED: AZITHROMYCIN 250 MG TAB PO SCH (09:00)
[2022-07-10] MEDS ORDERED: ROSUVASTATIN 10 MG TAB PO SCH (09:00)
--- NOTE | 2022-07-10 09:39 | P.DS ---
Admission Date: 07/08/22 Discharge Date: 07/10/22 Primary Care Provider: Mick Disposition: ROUTINE DISCHARGE Reason for Admission: Pneumonia Brief History of Present Illness: Patient is a 71 year old female with past medical history of hyperlipidemia and rheumatoid arthritis who presented to the emergency department with complaints of neck pain, chest pain, and leg pain secondary to physical activity yesterday (moving her potted plants). She was noted to be febrile at 101F and tachypneic upon arrival but saturating appropriately on room air. Her labs are significant for WBC 27.4, potassium 3.1, BNP 1282, lactate and troponin within normal limits. EKG without ST changes. Chest xray and chest CT angio showed "Lingular opacity probably pneumonia. This should be followed until it is clear to help exclude a post obstructive process/underlying mass. Negative for PE." Neck CTA negative. Patient given zithromycin, and rocephin in ED. She was requiring 1.5 L supplemental O2. Patient was admitted for further management. Hospital Course: Diagnosis Pneumonia Rheumatoid arthritis Hypokalemia Hyperlipidemia Patient admitted to the medical floor and treated with IV Rocephin and Zithromax She had leukocytosis which improved with treatment. She tolerated room air with good oxygen saturation. She was also treated with breathing treatments, antitussives, guaifenesin Seen by pulmonology, and antibiotics scaled down to oral Levaquin after patient clinical condition improved. Patient has improved to baseline, no more fever. She is deemed stable for discharge. Radiology recommended repeat chest imaging to ensure resolution of the lingular pneumonia. Vital Signs/Physical Exam: Temp Pulse Resp BP Pulse Ox 97.1 F 77 18 140/73 91 07/10/22 08:00 07/10/22 08:00 07/10/22 08:00 07/10/22 08:00 07/10/22 08:00 General: Alert, In no apparent distress, Oriented x3 HEENT: Mucous membr. moist/pink Neck: JVD not distended Respiratory: Clear to auscultation bilaterally, Normal air movement Cardiovascular: No edema, Regular rate/rhythm, Normal S1 S2 Gastrointestinal: Non-distended Musculoskeletal: No swelling Integumentary: No rashes Neurological: Normal strength at 5/5 x4 extr Laboratory Data at Discharge: WBC 21.20 K/uL (4.3-10.9) H* 07/10/22 03:24 Hgb 12.7 g/dL (12.0-15.0) 07/10/22 03:24 Hct 38.9 % (36.0-45.0) 07/10/22 03:24 Plt Count 362 K/uL (152-406) D 07/10/22 03:24 PT 12.6 SECONDS (9.5-12.5) H 07/08/22 18:10 INR 1.15 07/08/22 18:10 APTT 33.0 SECONDS (24.3-36.9) 07/08/22 18:10 Sodium 138 mmol/L (136-145) 07/10/22 03:24 Potassium 4.3 mmol/L (3.5-5.1) 07/10/22 03:24 BUN 18 mg/dL (7-18) 07/10/22 03:24 Creatinine 0.74 mg/dL (0.55-1.3) 07/10/22 03:24 Glucose 144 mg/dL (74-106) H 07/10/22 03:24 Phosphorus 2.7 mg/dL (2.5-4.9) 07/09/22 02:12 Magnesium 2.5 mg/dL (1.8-2.4) H 07/09/22 02:12 Total Bilirubin 0.3 mg/dL (0.2-1.0) 07/10/22 03:24 AST 12 U/L (15-37) L 07/10/22 03:24 ALT 13 U/L (12-78) 07/10/22 03:24 Alkaline Phosphatase 95 U/L (45-117) 07/10/22 03:24 Triglycerides 79 mg/dL (<150) 07/09/22 02:12 Cholesterol 119 mg/dL (<200) 07/09/22 02:12 HDL Cholesterol 51 mg/dL (40-60) 07/09/22 02:12 Cholesterol/HDL Ratio 2.33 07/09/22 02:12 Home Medications: Rosuvastatin [Crestor*] 10 mg PO DAILY 08/02/14 Tramadol HCl/Acetaminophen [Ultracet Tablet] 1 - 2 tab PO Q4HP PRN #30 tablet 08/03/14 Duloxetine HCl 1 tab PO BID 07/09/22 Meloxicam 15 mg PO DAILY 07/09/22 Benzonatate [Tessalon Perle*] 100 mg PO TID PRN #30 cap 07/10/22 levoFLOXacin [Levaquin*] 750 mg PO DAILY #5 tab 07/10/22 New Medications: levoFLOXacin [Levaquin*] 750 mg PO DAILY #5 tab Benzonatate [Tessalon Perle*] 100 mg PO TID PRN #30 cap PRN Reason: Cough Followup: Mateo Barton MD [Primary Care Provider] - Time spent managing pt's care (in minutes): 33
== END 2022-07-10 11:52 | disposition home or self-care (01) | DRG 193 ==
LOC: ER 16:37 → ERHOLD 20:33 → 4TH 07-09 19:40
PROVIDERS: ADMIT Hospitalist; ATTEND Internal Medicine
DX: J18.9 Pneumonia, unspecified organism (principal); J96.01 Acute respiratory failure with hypoxia; M06.9 Rheumatoid arthritis, unspecified; E87.6 Hypokalemia; E78.5 Hyperlipidemia, unspecified; Z88.5 Allergy status to narcotic agent; Z90.49 Acquired absence of other specified parts of digestive tract; Z79.899 Other long term (current) drug therapy; Z90.710 Acquired absence of both cervix and uterus; Z20.822 Contact with and (suspected) exposure to COVID-19
CPT/HCPCS: 36415; 70498; 71045; 71275; 80048; 80053; 80061; 81003; 81015; 83605; 83735; 83880; 84100; 84443; 84484; 85025; 85610; 85730; 87040; 87205; 87811; 93005; 94760; 96365; 96366; 96375; 97116; 97161; 99285; J0456; J1650; J2270; J2405; J2920; J7050; Q0144; Q9967